=== PATIENT | female | born 1970 | race Caucasian/White ===

== ENCOUNTER 2021-08-23 10:58 | Emergency (ER) | payer MEDICAID, SELFPAY ==
[2021-08-23 11:04] VITALS: BP 139/73; PULSE 71; RESP 16; TEMP 36.8; O2SAT 96
--- NOTE | 2021-08-23 11:20 | ED.GENADUL_ITS ---
Discharge Plan Disposition Patient Disposition: HOME Condition: Improving Discharge Details Clinical Impression: Chronic pain of left ankle, Arthritis of ankle, left Primary Care Provider: None,None ED Provider: Julián Gregorio Home Meds and New Rx's Prescriptions: New diclofenac potassium 50 mg tablet 50 mg PO BID 30 Days Qty: 60 0RF oxycodone [Roxicodone] 5 mg tablet 5 mg PO BID PRN (Reason: pain) Qty: 5 0RF Continued atenolol 25 mg Tablet 25 mg PO DAILY hydrochlorothiazide 25 mg Tablet 25 mg PO DAILY lisinopril 40 mg Tablet 40 mg PO DAILY Discharge Instructions Instructions: Chronic Pain (ED), Arthritis (ED) Additional Instructions: Wear walking boot as needed for comfort 3 to 10 days time. Remove at bedtime and may remove for bathing. Elevate the leg and apply ice 20 minutes at a time to reduce pain and swelling Oxycodone if needed for severe or breakthrough pain. Please restart your diclofenac and follow-up with primary care as you have planned. Return to the ER for any acute concerns Medical Decision Making This is a 51-year-old female with chronic left ankle pain due to previous fracture with ORIF. She has been maintained on diclofenac orally for years, recently moved from [place] and has lost her primary care and prescription. She has just restarted primary care but not yet all of her medications. She complains of acute on chronic left ankle pain without fever or rash, denies new injury. Her exam is consistent with the above. She declined screening radiographs. I do feel she had to be started back on her diclofenac, she has plans to establish outpatient baseline laboratories. We will trial walking boot. Distally she was consented for total 5 narcotic analgesics for her acute pain. She is not known to have any chronic renal dysfunction. She is stable for outpatient plan of care HPI General Mode of arrival: ambulatory . Date/Time Provider Initiated Documentation: 08/23/21 11:02 . Limitations to Documentation: no limitations . Information obtained by: patient . History of Present Illness 51 year old F presents to the emergency department with the chief complaint of Acute exacerbation of chronic left ankle pain, described as moderate, Quality is described as dull and constant, and is localized to the left and lower extremity. Patient reports no radiation. Patient started experiencing this year(s) and it has been constant. Rest improves symptom(s), Movement worsens symptoms . Patient notes denies fever/chills and rash. Patient did receive the following treatments prior to arrival, none Related Data Home Medications Medication Instructions Recorded Confirmed atenolol 25 mg tablet 25 mg PO DAILY 08/23/21 08/23/21 diclofenac potassium 50 mg tablet 50 mg PO BID 30 days #60 tabs 08/23/21 hydrochlorothiazide 25 mg tablet 25 mg PO DAILY 08/23/21 08/23/21 lisinopril 40 mg tablet 40 mg PO DAILY 08/23/21 08/23/21 oxycodone 5 mg tablet (Roxicodone) 5 mg PO BID PRN pain #5 tabs 08/23/21 Previous Rx's Medication Instructions Recorded diclofenac potassium 50 mg tablet 50 mg PO BID 30 days #60 tabs 08/23/21 oxycodone 5 mg tablet (Roxicodone) 5 mg PO BID PRN pain #5 tabs 08/23/21 Allergies Allergy/AdvReac Type Severity Reaction Status Date / Time No Known Allergies Allergy Unverified 08/23/21 11:09 General Stated Complaint: Orthopedic DONG: 4 Review of Systems Narrative: 6 systems reviewed and otherwise negative. No new injury, no fever or rash PFSH All Active Problems (Updated 08/23/21 @ 11:26 by Julián Gregorio MD) Chronic pain of left ankle (Acute) Arthritis of ankle, left (Acute) Social History Smoking/Tobacco Use Status: Never Smoking risk assessment performed?: Yes Alcohol Intake: never Substance use type: does not use Do you feel safe at home: Yes Do you feel safe in your relationship?: Yes Exam Narrative Exam Narrative: GEN: awake, alert, oriented 3. Pleasant, well groomed, interactive. HEAD: Normocephalic, atraumatic ENT: Mucous membranes moist, oropharynx unremarkable, External ear exam unremarkable EYES: PERRL, EOMI NECK: Full ROM, no AYDEN, no menigismus CHEST/RESP: Nontender, clear to auscultation bilateral, no wheeze/rhonchi/rales CARDIOVASCULAR: RRR, no murmur, rub patti. 2+ Rad pulse bilateral ABDOMEN: Soft, nontender, no mass. +Bowel sounds EXT: Full ROM, left ankle with healed surgical scar, mild swelling, mild diffuse tenderness. Neuro: Grossly normal neurologic exam, conversant, interactive. Psych: Speech fluent, thoughts congruent, affect normal Course Vital Signs Vital signs: Vital Signs Temperature 36.8 C 08/23/21 11:04 Pulse 71 08/23/21 11:04 Respiratory Rate 16 08/23/21 11:04 Blood Pressure 139/73 08/23/21 11:04 Pulse Oximetry 96 08/23/21 11:04 Temperature 36.8 C 08/23/21 11:04 Pulse 71 08/23/21 11:04 Respiratory Rate 16 08/23/21 11:04 Respiratory Effort 08/23/21 11:10 Blood Pressure 139/73 08/23/21 11:04 Pulse Oximetry 96 08/23/21 11:04 Pain Level 9 08/23/21 11:04
[2021-08-23] MEDS: Ketorolac 30 MG/ML VIAL IM (11:40)
== END 2021-08-23 11:52 | disposition home or self-care (01) ==
PROVIDERS: Emergency Provider Emergency Medicine
DX: M25.572 Pain in left ankle and joints of left foot (principal); G89.29 Other chronic pain
CPT/HCPCS: 99284; 99283; J1885

== ENCOUNTER 2021-08-30 17:52 | Outpatient (REF) | payer MEDICAID, SELFPAY ==
[2021-08-30 16:11] LABS: Abs Immature Grans 0.04 10^3/uL (0.0-0.06); Absolute Basophil Count 0.04 10^3/uL (0.0-0.2); Absolute Eosinophil Count 0.41 10^3/uL (0.0-0.7); Absolute Lymphocyte Count 1.97 10^3/uL (1.2-3.4); Absolute Monocyte Count 0.41 10^3/uL (0.1-0.8); Absolute Neutrophil Count 6.95 10^3/uL (1.2-6.7); Basophils % 0.4; Eosinophils % 4.2; HCT 41.9 % (36.0-46.0); HGB 12.8 g/dL (11.2-15.7); Immature Grans % 0.4; Lymphocytes % 20.1; MCH 27.1 pg (27.0-33.0); MCHC 30.5 % (32.0-36.0); MCV 89 fL (80-95); MPV 11.4 fL (8.0-11.0); Monocytes % 4.2; Neutrophils % 70.7; Platelet Count 403 10^3/uL (130-400); RBC 4.72 10^6/uL (3.93-5.22); RDW 12.9 % (11.7-14.6); RDW-SD 42.2 fL; WBC 9.82 10^3/uL (4.4-10.8)
[2021-08-30 17:44] LABS: ALT 45 U/L (14-59); AST 45 U/L (15-37); Albumin 3.2 g/dL (3.4-5.0); Alkaline Phosphatase 71 U/L (46-116); Anion Gap 7.2 mmol/L (3-11); BUN 25 mg/dL (7-18); Bilirubin, Total 0.5 mg/dL (0.2-1.0); CO2 28.8 mmol/L (21.0-32.0); CREATININE 0.7 mg/dL (0.55-1.02); Calcium 9.2 mg/dL (8.5-10.1); Calculated LDL 76 mg/dL (<100); Chloride 104 mmol/L (98-107); Cholesterol 139 mg/dL (<200); Glucose 96 mg/dL (74-106); HDL Cholesterol 52 mg/dL (40-60); Potassium 4.1 mmol/L (3.5-5.1); Sodium 140 mmol/L (136-145); TSH (W/Ref FT4) 0.99 uIU/mL (0.36-3.74); Total Protein 7.9 g/dL (6.4-8.2); Triglyceride 59 mg/dL (<150)
[2021-08-30 17:58] LABS: Vitamin D 25 Total 22.2 ng/mL (30-100)
== END 2021-08-30 17:53 | disposition home or self-care (01) ==
LOC: NCHCN 17:52
PROVIDERS: Visit Provider Nurse Practitioner Family
DX: I10 Essential (primary) hypertension (principal); F41.8 Other specified anxiety disorders; E55.9 Vitamin D deficiency, unspecified; L40.59 Other psoriatic arthropathy; M25.572 Pain in left ankle and joints of left foot
CPT/HCPCS: 80053; 80061; 82306; 84443; 85025

== ENCOUNTER → 2021-09-26 00:19 | Outpatient (CLI) | payer MEDICAID, SELFPAY ==
--- NOTE | 2021-09-26 10:52 | DI.RAD_ITS ---
Exam(s) XR ANKLE LT COMPLETE EXAM: XR ANKLE LT COMPLETE CLINICAL HISTORY: LT ANKLE JOINT PAIN, M25.572, CHRONIC PAIN, SIGNIFICANT TRAUMA 2003 SURGERY TECHNIQUE: 2D digital imaging was performed. Three views. COMPARISON: No exams were available for comparison FINDINGS: BONES: Hardware is noted in distal tibia and fibula related to fracture fixation. No acute fracture is present. No bony destructive lesion is seen. JOINTS:There is severe narrowing of the tibiotalar and fibulotalar joints, with near obliteration of the joint space and prominent periarticular spurring. He heel spurs are also noted. SOFT TISSUE: Swelling around both malleoli. Soft tissue calcifications. IMPRESSION: Severe degenerative changes of the ankle joint DATA REPOSITORY: RADIATION DOSE DELIVERED:
== END ==
PROVIDERS: Visit Provider Nurse Practitioner Family
DX: M25.572 Pain in left ankle and joints of left foot (principal); G89.29 Other chronic pain; M19.072 Primary osteoarthritis, left ankle and foot; Z87.828 Personal history of other (healed) physical injury and trauma
CPT/HCPCS: 73610

== ENCOUNTER → 2021-11-26 02:41 | Outpatient (CLI) | payer MEDICAID, SELFPAY ==
--- NOTE | 2021-11-26 | DI.US_ITS ---
Exam(s) US ABDOMEN LIMITED EXAM: US ABDOMEN LIMITED CLINICAL HISTORY: ELEVATED LFT'S R79.89, EVALUATE LIVER TECHNIQUE: Ultrasound abdomen performed using standard protocol. COMPARISON: No exams were available for comparison FINDINGS: LIVER: Enlarged at 20 cm in length. Diffusely increased echogenicity consistent with moderate hepati c steatosis.. No focal liver lesions are seen.. GALLBLADDER: Status post cholecystectomy. BILIARY SYSTEM: No intrahepatic or extrahepatic biliary ductal dilation. Right KIDNEY: Normal in size. No evidence of renal calculi. No evidence of hydronephrosis. No renal m ass or cyst identified. PANCREAS: Normal where visualized. ABDOMINAL AORTA AND IVC: Visualized portions normal caliber. ASCITES: None seen. IMPRESSION: Enlarged liver with moderate hepatic steatosis. DATA REPOSITORY:
== END ==
PROVIDERS: Visit Provider Nurse Practitioner Family
DX: K76.0 Fatty (change of) liver, not elsewhere classified (principal); R16.0 Hepatomegaly, not elsewhere classified
CPT/HCPCS: 76705

== ENCOUNTER 2022-02-27 16:35 | Emergency (ER) | payer MEDICAID, SELFPAY ==
[2022-02-27 16:40] VITALS: BP 152/105; PULSE 73; RESP 18; TEMP 36.8; O2SAT 94
[2022-02-27] MEDS: Benzocaine 20% Gel 30 GM JAR MM (17:45)
--- NOTE | 2022-02-27 17:52 | W.ED.GENAD ---
Discharge Plan Disposition Patient Disposition: Home Condition: Stable Discharge Details Clinical Impression: Pain, dental Primary Care Provider: TIMOTHY JUSTIN ED Provider: Herb Reyes Home Meds and New Rx's Prescriptions: No Action tizanidine 2 mg tablet 2 mg PO Q8H PRN (DME) Custom Elena Brace See Rx Instructions .Route .MEDSUPPLY Qty: 1 0RF Rx Instructions: Please fit and fabricate a custom Elena type brace to the left ankle for severe left ankle post-traumatic arthritis. She is unable to utilize [id number] options given her leg shape and fixed plantarflexed positioning. duloxetine 60 mg capsule,delayed release(DR/EC) 120 mg PO DAILY trazodone 50 mg tablet 50 mg PO QHS PRN atenolol 25 mg Tablet 25 mg PO DAILY hydrochlorothiazide 25 mg Tablet 25 mg PO DAILY lisinopril 40 mg Tablet 40 mg PO DAILY Discharge Instructions Instructions: Toothache (ED) Additional Instructions: You may use the provided dental gel 4 times a day. Please not use any more than that. Apply for at least 1 minute at a time and spit out remaining medication. If you develop any significant worsening of symptoms such as facial swelling, difficulty breathing or swallowing, or swelling of your tongue return immediately to the emergency department for reassessment. Otherwise continue follow-up with your dental provider for definitive care of your fractured tooth. Discharge Data Discharge Date/Time-TO BE ENTERED AT DEPARTURE: 02/27/22 17:59 Medical Decision Making Patient presenting to the emergency department for chief complaint of dental pain. Patient denies any facial swelling difficulty breathing or swallowing fever or chills. Patient states this occurred after getting some food stuck in a partially fractured tooth. Patient does state that she has arrange dental follow-up but is coming to the emergency department due to continued pain and discomfort even after removal of the food. Physical exam shows a partially fractured tooth #3 otherwise unremarkable exam. . no signs of deep neck space infection ( Retropharyngeal abscess, Chung's angina, Parapharyngeal space infection, Peritonsillar Abscess ([employer])) or Epiglottitis. Pt non toxic and stable. Benzocaine gel was applied to the area affected and patient reassessed and stated almost full resolution of discomfort. Did give very clear instructions on benzocaine gel use and allowed patient to take the remaining jaw or home with clear instructions to prevent overdose. Patient otherwise to follow-up with dental provider. I do not feel that patient has any signs of infection or need of antibiotics at this time. After discussion of diagnosis and plan of care patient has no further needs, questions, or concerns and states clear understanding to return to the emergency department for any worsening symptoms. This documentation was generated using [employer] dictation system, please disregard any oddities of phrase or misspellings. HPI General Mode of arrival: ambulatory. Date/Time Provider Initiated Documentation: 02/27/22 17:28. Limitations to Documentation: no limitations. Information obtained by: patient. History of Present Illness 51 year old F presents to the emergency department with the chief complaint of Dental pain, described as moderate, with intensity rated at 9. Quality is described as sharp, and is localized to the mouth. Patient started experiencing this day(s) (1) and it has been constant. No relieving factors improve symptom(s), Patient notes no other symptoms.. Patient did receive the following treatments prior to arrival, NSAID Related Data Home Medications Medication Instructions Recorded Confirmed atenolol 25 mg tablet 25 mg PO DAILY 08/23/21 10/09/21 hydrochlorothiazide 25 mg tablet 25 mg PO DAILY 08/23/21 10/09/21 lisinopril 40 mg tablet 40 mg PO DAILY 08/23/21 10/09/21 duloxetine 60 mg capsule,delayed 120 mg PO DAILY 09/05/21 10/09/21 release trazodone 50 mg tablet 50 mg PO QHS PRN 09/05/21 10/09/21 tizanidine 2 mg tablet 2 mg PO Q8H PRN 10/08/21 10/09/21 Custom [email or web address] Brace #1 ea 10/09/21 10/09/21 Previous Rx's Medication Instructions Recorded Custom [email or web address] Brace #1 ea 10/09/21 Allergies Allergy/AdvReac Type Severity Reaction Status Date / Time No Known Allergies Allergy Verified 10/08/21 10:56 General Stated Complaint: DentalOral DONG: 4 Review of Systems Constitutional Constitutional: Denies chills and Denies fever(s) ENT Ears, Nose, Mouth, and Throat: Reports as per HPI, Denies change in voice, Reports dental pain, Denies dysphagia, Denies throat swelling and Denies tongue swelling Cardiovascular Cardiovascular: Denies chest pain and Denies dyspnea Respiratory Respiratory: Denies dyspnea, Denies stridor and Denies wheezing Gastrointestinal Gastrointestinal: Denies abdominal pain, Denies dysphagia, Denies nausea and Denies vomiting Integumentary/Breasts Skin/Breast: Denies rash Allergic/Immunologic Allergic/Immunologic: Denies throat swelling, Denies tongue swelling and Denies wheezing PFSH All Active Problems (Updated 02/27/22 @ 17:53 by Herb Reyes NP) Pain, dental (Acute) Arthritis of ankle, left (Acute) Anxiety and depression (Chronic) Back pain (Acute) Hypertension (Chronic) Psoriatic arthritis (Acute) B12 deficiency (Acute) Elevated LFTs (Acute) Medical History Insomnia RLS (restless legs syndrome) Vitamin D deficiency Social History Smoking/Tobacco Use Status: Never Smoking risk assessment performed?: Yes Alcohol Intake: never Substance use type: does not use Do you feel safe at home: Yes Do you feel safe in your relationship?: Yes Exam Const General: cooperative Orientation: alert, awake and oriented x3 Limitations: mental status not altered [facility] Head: normal to inspection, normocephalic and atraumatic Ears: hearing grossly normal bilaterally, normal mastoids bilaterally and no periauricular adenopathy General nose exam: external nose normal Mouth: oropharynx normal, no drooling, no muffled voice, normal tongue and no trismus Teeth and gingiva: gingiva normal and other (Partially fractured tooth #3 no erythema or edema) Throat: posterior oropharynx normal, tonsils normal and uvula midline Eyes General: appearance normal, both eyes and all related structures Pupils: PERRL Neck Neck: normal visual inspection, full ROM, no lymphadenopathy, no meningeal signs, trachea midline, supple, no anterior neck swelling and no midline deformity Resp Effort & Inspection: normal respiratory effort and able to speak in complete sentences Auscultation: clear to auscultation bilaterally Cardio Rate: regular rate Rhythm: regular rhythm Heart Sounds: S1 normal and S2 normal Course Vital Signs Vital signs: Vital Signs Temperature 36.8 C 02/27/22 16:40 Pulse 73 02/27/22 16:40 Respiratory Rate 18 02/27/22 16:40 Blood Pressure 152/105 H 02/27/22 16:40 Pulse Oximetry 94 02/27/22 16:40 Temperature 36.8 C 02/27/22 16:40 Temperature Source Tympanic 02/27/22 16:40 Pulse 73 02/27/22 16:40 Respiratory Rate 18 02/27/22 16:40 Respiratory Effort 02/27/22 16:45 Blood Pressure 152/105 H 02/27/22 16:40 Blood Pressure Position Supine 02/27/22 16:40 Pulse Oximetry 94 02/27/22 16:40 Oxygen Delivery Method Room Air 02/27/22 16:40 Oxygen Flow Rate 0 02/27/22 16:40 Pain Level 9 02/27/22 16:40
== END 2022-02-27 17:59 | disposition home or self-care (01) ==
PROVIDERS: Emergency Provider Nurse Practitioner Family; PCP Nurse Practitioner Family
DX: K08.89 Other specified disorders of teeth and supporting structures (principal); K03.81 Cracked tooth
CPT/HCPCS: 99282

== ENCOUNTER 2022-03-27 01:44 | Outpatient (CLI) | payer MEDICAID, SELFPAY ==
--- NOTE | 2022-03-27 08:00 | DI.CT_ITS ---
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 TECHNIQUE: Imaging Protocol: Axial computed tomography images with coronal and sagittal reformatted images were created and reviewed. CONTRAST MATERIAL: Intravenous: None COMPARISON: X-rays 09/26/2021 FINDINGS: There has been interval oral removal of the lateral fibular sideplate and the smaller of the 2 side p lates of the distal tibia. No acute fractures. There are advanced osteoarthritic degenerative changes of the ankle-tibiotalar j oint. Joint space narrowing and there are degenerative subarticular cysts on both sides of the joint including tibial plafond and talar dome. No osteochondral defects seen. No evidence of osteomyelit is. Subtalar joint is relatively unremarkable as is the calcaneocuboid articulation. Moderate degen erative changes in the talonavicular joint. Sinus tarsi space is maintained. There is no osseous ta rsal coalition. There is a moderate size inferior calcaneal spur. No significant osseous lesions ev ident. IMPRESSION: Degenerative changes in the tibiotalar joint as described above. Other findings as above. RADIATION DOSE DELIVERED: 316.32mGy.cm Total DLP DATA REPOSITORY: All CT scans at this facility are submitted to the National Radiology Data Registry (NRDR) Dose Index Registry (DIR) with the [employer] (A[employer]). RADIATION OPTIMIZATION: All CT scans at this facility use at least one of these dose optimization te chniques: automated exposure control; mA and/or kV adjustment per patient size (includes targeted exa ms where dose is matched to clinical indication); or iterative reconstruction.
== END 2022-03-27 02:04 ==
LOC: DI 01:45
PROVIDERS: PCP Nurse Practitioner Family; Visit Provider Orthopaedic Surgery
DX: M19.172 Post-traumatic osteoarthritis, left ankle and foot (principal); M77.32 Calcaneal spur, left foot
CPT/HCPCS: 73700

== ENCOUNTER 2022-04-09 12:27 | Outpatient (CLI) | payer MEDICAID, SELFPAY ==
--- NOTE | 2022-04-09 | DI.CT_ITS ---
Exam(s) CT LOWER EXTREMITY LT WO EXAM: CT LOWER EXTREMITY LT WO CLINICAL HISTORY: OSTEOARTHRITIS OF LEFT ANKLE M19.172 PROPHECY PROTOCOL, SURGICAL PLANNING. TECHNIQUE: Imaging Protocol: Axial computed tomography images with coronal and sagittal reformatted images were created and reviewed. COMPARISON: CT CT LOWER EXTREMITY LT WO from 03/27/2022 FINDINGS: The examination was performed for nondiagnostic purposes and pre-surgical planning. There are marked degenerative changes seen at the tibial talar joint. There are postsurgical changes seen in the dis blane tibia and fibula. Calcaneal spurs are seen. Mild fatty atrophy of the lower extremity musculatu re is seen. IMPRESSION: 1. Posttraumatic and degenerative changes seen in the ankle. RADIATION DOSE DELIVERED: 595.24mGy.cm Total DLP 595.24mGy.cm Total DLP DATA REPOSITORY: All CT scans at this facility are submitted to the National Radiology Data Registry (NRDR) Dose Index Registry (DIR) with the [employer] (A[employer]). RADIATION OPTIMIZATION: All CT scans at this facility use at least one of these dose optimization te chniques: automated exposure control; mA and/or kV adjustment per patient size (includes targeted exa ms where dose is matched to clinical indication); or iterative reconstruction.
== END 2022-04-09 12:47 ==
LOC: DI 12:28
PROVIDERS: PCP Nurse Practitioner Family; Visit Provider Orthopaedic Surgery
DX: M25.572 Pain in left ankle and joints of left foot (principal); M19.172 Post-traumatic osteoarthritis, left ankle and foot; M77.32 Calcaneal spur, left foot; M62.572 Muscle wasting and atrophy, not elsewhere classified, left ankle and foot
CPT/HCPCS: 73700

== ENCOUNTER 2022-04-11 02:07 | Outpatient (CLI) | payer MEDICAID, SELFPAY ==
--- NOTE | 2022-04-11 | DI.MAMMO_ITS ---
Exam(s) MAMMO SCREENING EXAM: MAMMO SCREENING CLINICAL HISTORY: SCREENING MAMMO Z12.39 TECHNIQUE: Bilateral full field digital CC and MLO mammographic images were obtained with 3D tomosyn thesis and utilizing computer aided detection (CAD). COMPARISON: Available for comparison. FINDINGS: Masses/Architectural Distortion: None seen. Microcalcifications: No suspicious pleomorphic-type are seen. Skin Thickening/Nipple Retraction: None. IMPRESSION: 1. No significant interval change with no specific features of malignancy noted. 2. Unless there is more urgent need, screening mammography is recommended, as per [employer] guidelines. BI-RADS Category 1 - Negative Breast Density - Category B - Scattered areas of fibroglandular density Breast density category C or D implies that the patient has dense breast tissue. Dense breast tissue is very common and is not abnormal but dense breast tissue can make it harder to find cancer on a ma mmogram. Also, dense breast tissue may increase their breast cancer risk. This information about the result of the mammogram report was provided to the patient to raise their awareness. Use this report when you speak with the patient about their risks for breast cancer, which includes their family hist ory. At that time, you may recommend for more screening tests (Ultrasound or MRI) as they might be us eful based on their risk. A negative radiographic report should not delay biopsy if a dominant or clinically suspicious mass is present. Up to ten percent of cancers are not identified on mammography. A negative report may reinforce clinical impression. Adenosis and dense breasts may obscure an underlying neoplasm. False positive reports average 6 to 10%. Patient will receive a letter notifying them of these results.
== END 2022-04-11 02:27 ==
LOC: DI 02:08
PROVIDERS: PCP Nurse Practitioner Family; Visit Provider Family Medicine
DX: Z12.31 Encounter for screening mammogram for malignant neoplasm of breast (principal)
CPT/HCPCS: 77063; 77067

== ENCOUNTER 2022-10-04 10:04 | Emergency (ER) | payer MEDICAID, SELFPAY ==
[2022-10-04 10:06] VITALS: BP 128/93; PULSE 100; RESP 18; TEMP 36.5; O2SAT 95
--- NOTE | 2022-10-04 10:30 | DI.RAD_ITS ---
Exam(s) XR SHOULDER LT COMPLETE 2+V XR ELBOW LT COMPLETE XR HUMERUS LT EXAM: XR SHOULDER LT COMPLETE 2+V and XR humerus LT and XR elbow LT complete CLINICAL HISTORY: left upper arm pain. TECHNIQUE: 2D digital imaging was performed of the left humerus, elbow and shoulder. Nine images we re obtained. AP, Y, Grashey and AP and lateral views were obtained. COMPARISON: No priors for comparison. FINDINGS: BONES: There is an acute fracture of the greater tuberosity. The fracture appears nondisplaced. No bony destructive lesion is seen. JOINTS: No dislocation present. There are degenerative changes seen at the acromioclavicular joint. The glenohumeral joint and elbow joints are well maintained. No effusion is seen in the elbow joint. SOFT TISSUE: Normal. IMPRESSION: Nondisplaced acute fracture of the greater tuberosity of the proximal humerus. DATA REPOSITORY: RADIATION DOSE DELIVERED:
--- NOTE | 2022-10-04 10:35 | ED.GENADUL_ITS ---
Discharge Plan Disposition Patient Disposition: Home Condition: Good Discharge Details Clinical Impression: Closed left humeral fracture Primary Care Provider: TIMOTHY JUSTIN ED Provider: Meaghan Henderson Home Meds and New Rx's Prescriptions: New oxycodone 5 mg tablet 5 mg PO Q4H PRNQty: 14 0RF Continued tizanidine 2 mg tablet 2 mg PO Q8H PRN duloxetine 60 mg capsule,delayed release(DR/EC) 120 mg PO DAILY trazodone 50 mg tablet 50 mg PO QHS PRN cetirizine 10 mg Tablet 10 mg PO DAILY diclofenac sodium 75 mg Tablet,Delayed Release (Dr/Ec) 75 mg PO BID folic acid 1 mg Tablet 1 mg PO DAILY hydroxyzine HCl 25 mg Tablet 25 mg PO BID PRN cholecalciferol (vitamin D3) [Vitamin D3] 10 mcg (400 unit) Capsule 10 mcg PO DAILY methotrexate 2.5 mg/mL Solution 2.5 mg PO QWEEK atenolol 25 mg Tablet 25 mg PO DAILY hydrochlorothiazide 25 mg Tablet 25 mg PO DAILY lisinopril 40 mg Tablet 40 mg PO DAILY No Action (DME) Custom Elena Brace See Rx Instructions .Route .MEDSUPPLY Qty: 1 0RF Rx Instructions: Please fit and fabricate a custom Elena type brace to the left ankle for severe left ankle post-traumatic arthritis. She is unable to utilize [id number] options given her leg shape and fixed plantarflexed positioning. cephalexin 500 mg Capsule 500 mg PO BID Discharge Instructions Instructions: Proximal Humerus Fracture (ED) Additional Instructions: You will need to followup with orthpedics- they should call to schedule an appointment. You can take tylenol over the counter for pain; follow the directions on the lane ttle. You can also take oxycodone up to every 4 hours as needed for pain. Return to the emergency department for new or worsening symptoms. Referrals: [facility] [Provider Group] (left humerus greater tuberosity fracture) Medical Decision Making 52yo F with hx of osteoarthritis presenting with left arm pain after fall from porch; pulled of elevated (3 steps up) porch by dog as she had the leash wrapped around her left wrist. Landed on her left side, has left arm pain otherwise deneis pain or injury. No head strike, not on AC. Tachycardiac on arrival likely 2/t pain, vital signs otherwise reassuring. Pain at left eblow and shoulder, otherwise no significant traumatic findings on exam. Neurvascular intact LUE. No tenderness at hand, wrist, or forearm including no snuffbox tenderness. Will image proximal LUE. Would not pursue advanced imaging such as CT scan. Given PO tylenol and IM fentanyl for pain (patient on methotraxate/NSAID already, will avoid toradol), PO zofran. Plain films LUE (shoulder, humerus, elbow) ordered and independently reviewed, nondisplaced greater tuberosity fracture ; agree with radiology reads below. CXR independently reviewed, no evident rib fractures, agree with radiology read below. On reassessment patient symptomatically improved with reassuring vital signs. Placed in sling and arranged for outpatient orthopedic followup. Discharged home with short course of oxycodone. Discharge instructions including return precautions were reviewed with patient who verbalized understanding. All questions were answered and they are in full agreement with the plan. Imaging Data Radiologic Study: Imaging: X-Ray (Shoulder, XR, humerus) Radiologist's impression: IMPRESSION: Nondisplaced acute fracture of the greater tuberosity of the proximal humerus.? Radiologic Study #2: Imaging: X-Ray (chest) Radiologist's impression: IMPRESSION: No acute pulmonary findings. HPI General Date/Time Provider Initiated Documentation: 10/04/22 10:29 . Limitations to Documentation: no limitations . HPI Narrative: 52yo F with hx of osteoarthritis presenting with left arm pain after fall from porch. Was on elevated porch (3 steps) with no railing, dog leash wrapped around her left wrist. Dog saw a cat and ran off, she was dragged down and off the porch onto concrete before she was able to untangle the leash. Landed on her left arm. No head strike or loss of consciousness. Not on blood thinners. Reports left upper arm pain, otherwise denies pain. No numbness or tingling to her LUE. She was in her usual state of health before this event. Related Data Home Medications Medication Instructions Recorded Confirmed atenolol 25 mg tablet 25 mg PO DAILY 08/23/21 10/04/22 hydrochlorothiazide 25 mg tablet 25 mg PO DAILY 08/23/21 10/04/22 lisinopril 40 mg tablet 40 mg PO DAILY 08/23/21 10/04/22 duloxetine 60 mg capsule,delayed 120 mg PO DAILY 09/05/21 10/04/22 release trazodone 50 mg tablet 50 mg PO QHS PRN 09/05/21 10/04/22 tizanidine 2 mg tablet 2 mg PO Q8H PRN 10/08/21 10/04/22 [facility] Brace #1 ea 10/09/21 10/09/21 cephalexin 500 mg capsule 500 mg PO BID 10/04/22 10/04/22 cetirizine 10 mg tablet 10 mg PO DAILY 10/04/22 10/04/22 cholecalciferol (vitamin D3) 10 10 mcg PO DAILY 10/04/22 10/04/22 mcg (400 unit) capsule (Vitamin D3) diclofenac sodium 75 mg 75 mg PO BID 10/04/22 10/04/22 tablet,delayed release folic acid 1 mg tablet 1 mg PO DAILY 10/04/22 10/04/22 hydroxyzine HCl 25 mg tablet 25 mg PO BID PRN 10/04/22 10/04/22 methotrexate 2.5 mg/mL oral 2.5 mg PO QWEEK 10/04/22 10/04/22 solution oxycodone 5 mg tablet 5 mg PO Q4H PRN #14 tabs 10/04/22 Previous Rx's Medication Instructions Recorded [facility] Brace #1 ea 10/09/21 oxycodone 5 mg tablet 5 mg PO Q4H PRN #14 tabs 10/04/22 Allergies Allergy/AdvReac Type Severity Reaction Status Date / Time No Known Allergies Allergy Verified 10/04/22 10:16 General Stated Complaint: Orthopedic DONG: 3 Review of Systems Narrative: see HPI PFSH All Active Problems (Updated 10/04/22 @ 11:43 by Meaghan Henderson MD) Closed left humeral fracture (Acute) Arthritis of ankle, left (Acute) Anxiety and depression (Chronic) Back pain (Acute) Hypertension (Chronic) Psoriatic arthritis (Acute) B12 deficiency (Acute) Elevated LFTs (Acute) Medical History Insomnia RLS (restless legs syndrome) Vitamin D deficiency Social History Smoking/Tobacco Use Status: Never Smoking risk assessment performed?: Yes Alcohol Intake: never Substance use type: does not use Housing: apartment Do you feel safe at home: Yes Do you feel safe in your relationship?: Yes Exam Narrative Exam Narrative: GENERAL: Alert. SKIN: Warm and well perfused. No rashes, bruises, discolorations or abrasions. HEAD: Atraumatic, normocephalic without edema, discoloration or evidence of trauma. EYES: PERRL. No scleral icterus or conjunctival injection. No proptosis or enophthalmos. MOUTH: No malocclusion or trismus. Moist mucus membranes without blood. NECK: Trachea midline. No discolorations or edema. CV: Regular rate and rhythm, Normal s1 and s2. No murmurs, rubs, or gallops. PV: Radial pulses 2+ bilaterally and symmetric. 2+ capillary refill. No extremity edema. CHEST: No abrasions or ecchymosis. Chest symmetric with respirations. No chest wall tenderness. Lungs are clear to auscultation bilaterally. ABDOMEN: No ecchymosis or abrasions. Soft, nondistended, nontender. BACK: No abrasions, skin openings, or ecchymosis. Spine without bony tenderness, no step offs. PELVIC: Pelvis stable, nontender to lateral compression MSK: No gross deformities or discolorations or lesions. Pain with movement at left elbow and shoulder, otherwise tolerates full range of motion of extremities. No digit, wrist, or snuffbox tenderness. No clavicular or scapular tenderness. NEURO: Alert and oriented to person, place, and time. GCS 15. Sensation grossly intact. 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 Course Vital Signs Vital signs: Vital Signs Temperature 36.5 C 10/04/22 10:06 Pulse 100 H 10/04/22 10:06 Respiratory Rate 18 10/04/22 10:06 Blood Pressure 128/93 H 10/04/22 10:06 Pulse Oximetry 95 10/04/22 10:06 Temperature 36.5 C 10/04/22 10:06 Pulse 100 H 10/04/22 10:06 Respiratory Rate 18 10/04/22 10:06 Blood Pressure 128/93 H 10/04/22 10:06 Pulse Oximetry 95 10/04/22 10:06 Oxygen Delivery Method Room Air 10/04/22 10:06 Oxygen Flow Rate 0 10/04/22 10:06
--- NOTE | 2022-10-04 11:20 | DI.RAD_ITS ---
Exam(s) XR CHEST 2V PA LATERAL EXAM: XR CHEST 2V PA LATERAL CLINICAL HISTORY: Fall/Trauma TECHNIQUE: 2D digital imaging was performed of the chest. Two images were obtained. PA and lateral views were obtained. COMPARISON: No exams were available for comparison FINDINGS: MEDIASTINUM: Normal. HEART: Normal. PULMONARY VASCULATURE: Normal. LUNGS: Clear. PLEURAL SPACE: No pleural effusion or pneumothorax. BONE:Within normal limits for the patient's age. The patient's known nondisplaced left greater tuber osity fracture is best appreciated on the x-rays of the left shoulder performed the same day. OTHER FINDINGS:Normal. IMPRESSION: No acute pulmonary findings. DATA REPOSITORY: RADIATION DOSE DELIVERED:
[2022-10-04] MEDS: Acetaminophen 500 MG TAB 1000 MG PO (11:35)
[2022-10-04] MEDS: fentaNYL 100 MCG/2 ML VIAL 50 MCG IVP (11:35)
[2022-10-04] MEDS: Ondansetron O.D.T. 4 MG TABEF PO (11:35)
[2022-10-04 12:17] VITALS: BP 123/75; PULSE 77; RESP 18; TEMP 36.5; O2SAT 95
== END 2022-10-04 12:17 | disposition home or self-care (01) ==
PROVIDERS: Emergency Provider Student in an Organized Health Care Education/Training Program; PCP Nurse Practitioner Family
DX: S42.252A Displaced fracture of greater tuberosity of left humerus, initial encounter for closed fracture (principal); W17.89XA Other fall from one level to another, initial encounter
CPT/HCPCS: 96374; 99284; 71046; 73030; 73060; 73080; J3010

== ENCOUNTER 2022-10-21 15:07 | Outpatient (CLI) | payer MEDICAID, SELFPAY ==
--- NOTE | 2022-10-21 14:09 | DI.RAD_ITS ---
Exam(s) XR SHOULDER LT COMPLETE 2+V EXAM: XR SHOULDER LT COMPLETE 2+V CLINICAL HISTORY: F/U FRACTURE. TECHNIQUE: 2D digital imaging was performed. Three views. COMPARISON: CR XR SHOULDER LT COMPLETE 2+V from 10/04/2022 FINDINGS: There has been some interval healing at the greater tuberosity fracture. The alignment appears uncha nged. No new abnormalities are seen. DATA REPOSITORY: RADIATION DOSE DELIVERED:
== END 2022-10-21 15:08 | disposition home or self-care (01) ==
LOC: DIORS 15:08
PROVIDERS: PCP Nurse Practitioner Family; Visit Provider Physician Assistant
DX: S42.254D Nondisplaced fracture of greater tuberosity of right humerus, subsequent encounter for fracture with routine healing (principal); X58.XXXD Exposure to other specified factors, subsequent encounter
CPT/HCPCS: 73030

== ENCOUNTER 2022-10-29 19:43 | Outpatient (REF) | payer MEDICAID, SELFPAY ==
[2022-10-29 16:06] LABS: Abs Immature Grans 0.02 10^3/uL (0.0-0.06); Absolute Basophil Count 0.06 10^3/uL (0.0-0.2); Absolute Eosinophil Count 0.37 10^3/uL (0.0-0.7); Absolute Lymphocyte Count 1.94 10^3/uL (1.2-3.4); Absolute Monocyte Count 0.29 10^3/uL (0.1-0.8); Absolute Neutrophil Count 5.67 10^3/uL (1.2-6.7); Basophils % 0.7; Eosinophils % 4.4; HCT 38.3 % (36.0-46.0); HGB 11.9 g/dL (11.2-15.7); Immature Grans % 0.2; Lymphocytes % 23.2; MCH 26.9 pg (27.0-33.0); MCHC 31.1 % (32.0-36.0); MCV 87 fL (80-95); MPV 10.9 fL (8.0-11.0); Monocytes % 3.5; Platelet Count 396 10^3/uL (130-400); RBC 4.43 10^6/uL (3.93-5.22); RDW 16.7 % (11.7-14.6); RDW-SD 51.6 fL; WBC 8.35 10^3/uL (4.4-10.8)
[2022-10-29 16:42] LABS: ALT 65 U/L (14-59); AST 54 U/L (15-37); Albumin 3.5 g/dL (3.4-5.0); Alkaline Phosphatase 124 U/L (46-116); Anion Gap 6.3 mmol/L (3-11); BUN 31 mg/dL (7-18); Bilirubin, Total 0.5 mg/dL (0.2-1.0); CO2 28.7 mmol/L (21.0-32.0); CREATININE 0.8 mg/dL (0.55-1.02); Calcium 9.2 mg/dL (8.5-10.1); Calculated LDL 113 mg/dL (<100); Chloride 101 mmol/L (98-107); Cholesterol 175 mg/dL (<200); Estimated GFR 89.71 (mL/min/1.73m2); Glucose 97 mg/dL (74-106); HDL Cholesterol 50 mg/dL (40-60); Potassium 4.9 mmol/L (3.5-5.1); Sodium 136 mmol/L (136-145); TSH (W/Ref FT4) 1.23 uIU/mL (0.36-3.74); Total Protein 7.4 g/dL (6.4-8.2); Triglyceride 61 mg/dL (<150); Vitamin B12 301 pg/mL (193-986)
[2022-10-29 17:07] LABS: Iron 46 ug/dL (50-170); Total Iron Binding Capacity 383 ug/dL (250-450); Transferrin Sat 12 % (15-50)
== END 2022-10-29 19:44 | disposition home or self-care (01) ==
LOC: NCHCN 19:43
PROVIDERS: PCP Nurse Practitioner Family; Visit Provider Nurse Practitioner Family
DX: I10 Essential (primary) hypertension (principal); E53.8 Deficiency of other specified B group vitamins; F32.89 Other specified depressive episodes; R53.83 Other fatigue; G89.29 Other chronic pain; G47.00 Insomnia, unspecified; R79.89 Other specified abnormal findings of blood chemistry
CPT/HCPCS: 80053; 80061; 82607; 83540; 83550; 84443; 85025

== ENCOUNTER 2022-11-05 13:14 | Outpatient (CLI) | payer MEDICAID, SELFPAY ==
--- NOTE | 2022-11-05 13:00 | DI.RAD_ITS ---
Exam(s) XR SHOULDER LT COMPLETE 2+V EXAM: XR SHOULDER LT COMPLETE 2+V CLINICAL HISTORY: f/u L proximal humerus fx. TECHNIQUE: 2D digital imaging was performed of the left shoulder. Two images were obtained. AP and Y views were obtained. COMPARISON: CR XR SHOULDER LT COMPLETE 2+V from 10/21/2022 FINDINGS: BONES: There has been no change in alignment of the fracture involving the greater tuberosity. No ne w fracture is seen. No bony destructive lesion is seen. JOINTS: No dislocation present. The glenohumeral and acromioclavicular joints are unremarkable. SOFT TISSUE: Normal. IMPRESSION: Stable proximal humeral fracture. DATA REPOSITORY: RADIATION DOSE DELIVERED:
== END 2022-11-05 13:15 | disposition home or self-care (01) ==
LOC: DIORS 13:15
PROVIDERS: PCP Nurse Practitioner Family; Referring Provider Nurse Practitioner Family; Visit Provider Student in an Organized Health Care Education/Training Program
DX: S42.252D Displaced fracture of greater tuberosity of left humerus, subsequent encounter for fracture with routine healing (principal); X58.XXXD Exposure to other specified factors, subsequent encounter
CPT/HCPCS: 73030

== ENCOUNTER → 2022-11-21 01:42 | Outpatient (CLI) | payer MEDICAID, SELFPAY ==
--- NOTE | 2022-11-21 08:27 | DI.MRI_ITS ---
Exam(s) MR UPPER JOINT LT WO EXAM: MR UPPER JOINT LT WO CLINICAL HISTORY: ? ROTATOR CUFF TEAR,fx greater tuberositylt humerus,s42.252a,m75.102. TECHNIQUE: Multiplanar multisequence MRI was performed. COMPARISON: Plain films 05 November 2022 FINDINGS: Exam somewhat limited by patient body habitus and motion. BONES: Greater tuberosity fracture, better seen on plain films. Focal area of high signal near fract ure site.. JOINTS:The acromioclavicular joint shows mild spurring. The glenohumeral joint is normal. TENDONS: Supraspinatus: Thickening and intermediate signal without focal tear. Infraspinatus: Unremarkable. Subscapularis: Unremarkable. Teres [place]: Unremarkable. Biceps and [place]: Unremarkable. MUSCLES: Unremarkable. GLENOID LABRUM: Unremarkable on this noncontrast examination. SOFT TISSUES: Unremarkable. OTHER: Subacromial and subdeltoid bursae shows minimal fluid. Small amount of fluid in subcoracoid b ursa. . IMPRESSION: Greater tuberosity fracture. Supraspinatus tendinosis without focal tear. DATA REPOSITORY:
== END ==
PROVIDERS: PCP Nurse Practitioner Family; Visit Provider Student in an Organized Health Care Education/Training Program
DX: S42.252A Displaced fracture of greater tuberosity of left humerus, initial encounter for closed fracture (principal)
CPT/HCPCS: 73221

== ENCOUNTER 2022-12-03 10:24 | Outpatient (CLI) | payer MEDICAID, SELFPAY ==
--- NOTE | 2022-12-03 09:45 | DI.RAD_ITS ---
Exam(s) XR SHOULDER LT COMPLETE 2+V EXAM: XR SHOULDER LT COMPLETE 2+V CLINICAL HISTORY: LEFT HUMERUS FX. TECHNIQUE: 2D digital imaging was performed of the left shoulder. Three images were obtained. Y an d [place] views were obtained. COMPARISON: CR XR SHOULDER LT COMPLETE 2+V from 11/05/2022 FINDINGS: BONES: There has been no change in alignment of the fracture involving the greater tuberosity. No ne w fracture is seen. No bony destructive lesion is seen. JOINTS: No dislocation present. The glenohumeral joint is well maintained. Mild degenerative changes are seen at the acromioclavicular joint. SOFT TISSUE: Normal. IMPRESSION: Stable fracture involving the greater tuberosity. DATA REPOSITORY: RADIATION DOSE DELIVERED:
== END 2022-12-03 10:25 | disposition home or self-care (01) ==
LOC: DIORS 10:24
PROVIDERS: PCP Nurse Practitioner Family; Visit Provider Student in an Organized Health Care Education/Training Program
DX: S42.252A Displaced fracture of greater tuberosity of left humerus, initial encounter for closed fracture (principal); X58.XXXA Exposure to other specified factors, initial encounter
CPT/HCPCS: 73030

== ENCOUNTER 2022-12-29 05:33 | Emergency (ER) | payer MEDICAID, SELFPAY ==
[2022-12-29 05:36] VITALS: BP 157/100; PULSE 88; RESP 18; TEMP 36.5; O2SAT 94
[2022-12-29 05:40] VITALS: BP 157/100; PULSE 87; RESP 18; TEMP 36.6; O2SAT 92
--- NOTE | 2022-12-29 05:45 | DI.RAD_ITS ---
Exam(s) XR PORTABLE CHEST AP EXAM: XR PORTABLE CHEST AP CLINICAL HISTORY: eval for pneumonia. TECHNIQUE: 2D digital imaging was performed. COMPARISON: CR XR CHEST 2V PA LATERAL from 10/04/2022 FINDINGS: Single AP portable view. Heart size is upper normal. The mediastinum is not widened. Left lung is clear but there is now linear infiltrate or atelectasis in the right upper lobe. No ple ural effusions. IMPRESSION: Linear opacities in the right upper lobe which are either atelectasis or developing infiltrate. Requ ires follow-up to resolution. DATA REPOSITORY: RADIATION DOSE DELIVERED:
--- NOTE | 2022-12-29 05:47 | W.ED.GENAD ---
Discharge Plan Disposition Patient Disposition: Home Condition: Good Discharge Details Clinical Impression: Asthma exacerbation, Upper respiratory infection Primary Care Provider: TIMOTHY JUSTIN ED Provider: Ismael Do Home Meds and New Rx's Prescriptions: New azithromycin 250 mg tablet 250 mg PO DAILY 4 Days Qty: 4 0RF Rx Instructions: start on day 2 of therapy prednisone 50 mg tablet 50 mg PO DAILY Qty: 5 0RF No Action tizanidine 2 mg tablet 2 mg PO Q8H PRN (DME) Custom Elena Brace See Rx Instructions .Route .MEDSUPPLY Qty: 1 0RF Rx Instructions: Please fit and fabricate a custom Elena type brace to the left ankle for severe left ankle post-traumatic arthritis. She is unable to utilize [id number] options given her leg shape and fixed plantarflexed positioning. trazodone 50 mg tablet 50 mg PO QHS PRN duloxetine 60 mg capsule,delayed release(DR/EC) 90 mg PO DAILY diclofenac sodium 75 mg Tablet,Delayed Release (Dr/Ec) 75 mg PO BID folic acid 1 mg Tablet 1 mg PO DAILY hydroxyzine HCl 25 mg Tablet 25 mg PO BID PRN methotrexate 2.5 mg/mL Solution 2.5 mg PO QWEEK atenolol 25 mg Tablet 25 mg PO DAILY hydrochlorothiazide 25 mg Tablet 25 mg PO DAILY lisinopril 40 mg Tablet 40 mg PO DAILY Discharge Instructions Instructions: Asthma (ED), Upper Respiratory Infection (ED) Additional Instructions: At this time your COVID flu and RSV test is negative. I suspect you do have mild bronchitis/early pneumonia. Please take the antibiotic as directed. Please stop taking your hydroxyzine while on the medication. Please take the inhaler we have given you, 2 puffs every 6 hours for the next 3 to 4 days. If you notice any worsening of your symptoms, or any new symptoms such as vomiting, diarrhea, fever, chills, shortness of breath, chest pain, numbness, weakness, or fainting , please return immediately to the emergency department for reevaluation. Please follow up with your primary care provider as soon as possible for reassessment and reevaluation. As always, it was a pleasure participating in your medical care today. Referrals: TIMOTHY JUSTIN, [facility] [Primary Care Provider] - Discharge Data Discharge Date/Time-TO BE ENTERED AT DEPARTURE: 12/29/22 07:13 Medical Decision Making 52-year-old female with past medical history of psoriatic arthritis, hypertension, who has never personally smoked, but has been to a smoker who smokes in the house for the last 20 years. She presents today for evaluation of cough and fever. Patient states that over the last 2 to 3 days she has had the symptoms, she has also been mildly short of breath. She denies any chest pain or pleuritic chest pain. No history of clots. She states that her sputum has transition to a green productive sputum with her cough over the last 24 hours. Daughter who is also here has similar symptoms. She denies any history of reactive airway disease otherwise. No other complaints at this time. No other modifying factors. Physical exam demonstrates wheeze in the right lower lung field, no crackles or rhonchi. Oxygenation excellent. No other signs of infection or abnormality. Symptoms inconsistent clinically with ACS at this time. Concern for reactive airway disease from secondhand smoke, worsened by likely viral etiology. Will get x-ray to rule out pneumonia. Will check for flu COVID and RSV. Will give 60 of prednisone and 2 DuoNebs. Will monitor closely and reassess. 6:54 AM COVID flu and RSV are negative. Patient feels much better after nebulizers. Chest x-ray shows linear opacities/developing infiltrate. Concern for potential pneumonia. We will start the patient on azithromycin, give a dose here. Give inhaler for home use. Patient otherwise stable and does not show indication for admission. Oxygenation excellent. No evidence of sepsis. Discussed red flags for which to return. I have extensively reviewed the treatment plan and discharge instructions with the patient and their family. I have addressed all patient concerns at this time. The patient and family was made aware of what symptoms to monitor for that would warrant a return to the emergency department. Discussed the plan with the patient and family, they demonstrate verbal understanding and agreement with our assessment and plan at this time. The documentation in this chart was dictated using [email or web address] dictation software. Please excuse any dictation errors. FINDINGS: Single AP portable view. Heart size is upper normal. The mediastinum is not widened. Left lung is clear but there is now linear infiltrate or atelectasis in the right upper lobe. No pleural effusions. IMPRESSION: Linear opacities in the right upper lobe which are either atelectasis or developing infiltrate. Requires follow-up to resolution. HPI General Date/Time Provider Initiated Documentation: 12/29/22 05:34. HPI Narrative: 52-year-old female with past medical history of psoriatic arthritis, hypertension, who has never personally smoked, but has been to a smoker who smokes in the house for the last 20 years. She presents today for evaluation of cough and fever. Patient states that over the last 2 to 3 days she has had the symptoms, she has also been mildly short of breath. She denies any chest pain or pleuritic chest pain. No history of clots. She states that her sputum has transition to a green productive sputum with her cough over the last 24 hours. Daughter who is also here has similar symptoms. She denies any history of reactive airway disease otherwise. No other complaints at this time. No other modifying factors. Related Data Home Medications Medication Instructions Recorded Confirmed atenolol 25 mg tablet 25 mg PO DAILY 08/23/21 12/29/22 hydrochlorothiazide 25 mg tablet 25 mg PO DAILY 08/23/21 12/29/22 lisinopril 40 mg tablet 40 mg PO DAILY 08/23/21 12/29/22 trazodone 50 mg tablet 50 mg PO QHS PRN 09/05/21 12/29/22 tizanidine 2 mg tablet 2 mg PO Q8H PRN 10/08/21 12/29/22 [facility] Brace #1 ea 10/09/21 12/03/22 diclofenac sodium 75 mg 75 mg PO BID 10/04/22 12/29/22 tablet,delayed release folic acid 1 mg tablet 1 mg PO DAILY 10/04/22 12/29/22 hydroxyzine HCl 25 mg tablet 25 mg PO BID PRN 10/04/22 12/29/22 methotrexate 2.5 mg/mL oral 2.5 mg PO QWEEK 10/04/22 12/29/22 solution duloxetine 60 mg capsule,delayed 90 mg PO DAILY 11/05/22 12/29/22 release azithromycin 250 mg tablet 250 mg PO DAILY 4 days #4 tabs 12/29/22 prednisone 50 mg tablet 50 mg PO DAILY #5 tabs 12/29/22 Previous Rx's Medication Instructions Recorded [facility] Brace #1 ea 10/09/21 azithromycin 250 mg tablet 250 mg PO DAILY 4 days #4 tabs 12/29/22 prednisone 50 mg tablet 50 mg PO DAILY #5 tabs 12/29/22 Allergies Allergy/AdvReac Type Severity Reaction Status Date / Time No Known Allergies Allergy Verified 12/29/22 05:50 General Stated Complaint: SOB DONG: 3 Review of Systems All systems reviewed & are unremarkable except as noted in HPI and below PFSH All Active Problems (Updated 12/29/22 @ 06:57 by Ismael Do DO) Upper respiratory infection (Acute) Asthma exacerbation (Acute) Fracture of greater tuberosity of left humerus (Acute 10/04/22) Arthritis of ankle, left (Acute) Anxiety and depression (Chronic) Back pain (Acute) Hypertension (Chronic) Psoriatic arthritis (Acute) B12 deficiency (Acute) Elevated LFTs (Acute) Medical History Vitamin D deficiency Insomnia RLS (restless legs syndrome) Social History Smoking/Tobacco Use Status: Never Smoking risk assessment performed?: Yes Alcohol Intake: never Substance use type: does not use Housing: apartment Do you feel safe at home: Yes Do you feel safe in your relationship?: Yes Exam Narrative Exam Narrative: 1.Const: Well-nourished, Well-developed, appearing stated age 2.Eyes: PERRL, no conjunctival injection, and symmetrical lids. 3.ENT: Atraumatic external nose and ears. Moist MM. Neck: Symmetric, trachea midline, No thyromegaly. 4.CVS: +S1/S2, No murmurs or gallops. Peripheral pulses 2+ and equal in all extremities. Brisk capillary refill in all extremities. 5.RESP: Diminished breath sounds throughout, notable wheeze in the right lungs. No crackles or rhonchi. 6.GI: Soft, Nontender/Nondistended, No hepatosplenomegaly. No guarding or rebound. 7.MSK: Normocephalic/Atraumatic, Extremities w/o deformity or ttp No cyanosis or clubbing, Normal movement of all extremities 8.Skin: Warm, Dry. No rashes or lesions. 9.Neuro: senior site manager II-XII grossly intact. Sensation grossly intact, no focal neurologic deficits. 10.Psych: (AAO) x3. Appropriate mood and affect Course Vital Signs Vital signs: Vital Signs Temperature 36.5 C 12/29/22 05:36 Pulse 88 12/29/22 05:36 Respiratory Rate 18 12/29/22 05:36 Blood Pressure 157/100 H 12/29/22 05:36 Pulse Oximetry 94 12/29/22 05:36 Temperature 36.6 C 12/29/22 05:40 Pulse 87 12/29/22 05:40 Respiratory Rate 18 12/29/22 05:40 Respiratory Effort Normal 12/29/22 05:40 Respiratory Depth Normal 12/29/22 05:40 Respiratory Pattern Normal 12/29/22 05:40 Blood Pressure 157/100 H 12/29/22 05:40 Pulse Oximetry 92 12/29/22 05:40 Pain Level 0 12/29/22 05:40
[2022-12-29 05:55] VITALS: BP 129/89
[2022-12-29] MEDS: predniSONE 20 MG TAB 60 MG PO (06:10)
[2022-12-29] MEDS: Albuterol/Ipratropium 3 ML UPD VIAL 6 ML UPD (06:10)
[2022-12-29] MEDS: Acetaminophen 500 MG TAB 1000 MG PO (06:12)
[2022-12-29 06:29] LABS: COVID-19 PCR Negative (Negative); Influenza A PCR Negative (Negative); Influenza B PCR Negative (Negative); RSV PCR Negative (Negative)
[2022-12-29 06:37] LABS: Source Nasopharynx
--- NOTE | 2022-12-29 07:09 | DI.VRAD_ITS ---
PROCEDURE INFORMATION: Exam: XR Chest Exam date and time: 12/29/2022 6:03 AM Age: 52 years old Clinical indication: Wheezing TECHNIQUE: Imaging protocol: Radiologic exam of the chest. Views: 1 view. COMPARISON: CR XR CHEST 2V PA LATERAL 10/04/2022 11:13 AM FINDINGS: Lungs: Linear opacity right upper lobe. This may be related to pneumonia versus atelectasis Pleural spaces: Unremarkable. No pleural effusion. No pneumothorax. Heart/Mediastinum: Unremarkable. No cardiomegaly. Bones/joints: Unremarkable. IMPRESSION: Linear opacity right upper lobe likely related to pneumonia or atelectasis. Follow-up to resolution is recommended Dictated and Authenticated by: Dedra Narayanan MD. Ordering:DARIEL Guevara MD
[2022-12-29] MEDS: Azithromycin 250 MG TAB 500 MG PO (07:17)
[2022-12-29] MEDS: Albuterol HFA 8 GM 60 PUFF INH IH (07:17)
[2022-12-29] MEDS: Inhaler, Assist Device 1 EACH MC (07:17)
== END 2022-12-29 07:13 | disposition home or self-care (01) ==
PROVIDERS: Emergency Provider Student in an Organized Health Care Education/Training Program; PCP Nurse Practitioner Family
DX: J45.901 Unspecified asthma with (acute) exacerbation (principal); J06.9 Acute upper respiratory infection, unspecified; Z20.822 Contact with and (suspected) exposure to COVID-19; Z77.22 Contact with and (suspected) exposure to environmental tobacco smoke (acute) (chronic)
CPT/HCPCS: 87637; 99283; 71045; J7512; J7620

== ENCOUNTER → 2023-01-02 15:45 | Outpatient (CLI) | payer MEDICAID, SELFPAY ==
--- NOTE | 2023-01-02 | DI.RAD_ITS ---
Exam(s) XR CHEST 2V PA LATERAL EXAM: XR CHEST 2V PA LATERAL CLINICAL HISTORY: PNEUMONIA, SEEN ED 12/29 XRAY CONCERNING FOR DEVELOPING PNEUMONIA TECHNIQUE: 2D digital imaging was performed. COMPARISON: CR XR CHEST 2V PA LATERAL from 10/04/2022 CR,XR XR PORTABLE CHEST AP from 12/29/2022 FINDINGS: Exam is limited by patient body habitus. HEART: Normal size. Aorta: Not dilated. PULMONARY VASCULATURE: Normal. LUNGS: Clear. Previously noted linear density in the right upper lobe is no longer present. PLEURAL SPACE: No pleural effusion or pneumothorax. BONE:Unremarkable for age. IMPRESSION: No acute abnormality. DATA REPOSITORY: RADIATION DOSE DELIVERED:
== END ==
PROVIDERS: PCP Nurse Practitioner Family; Visit Provider Physician Assistant Medical
DX: J18.9 Pneumonia, unspecified organism (principal)
CPT/HCPCS: 71046

== ENCOUNTER 2023-02-04 10:03 | Outpatient (CLI) | payer MEDICAID, SELFPAY ==
--- NOTE | 2023-02-04 09:30 | DI.RAD_ITS ---
Exam(s) XR SHOULDER LT COMPLETE 2+V EXAM: XR SHOULDER LT COMPLETE 2+V CLINICAL HISTORY: left humerus f/u. TECHNIQUE: 2D digital imaging was performed. COMPARISON: CR XR SHOULDER LT COMPLETE 2+V from 11/05/2022 MR MR UPPER JOINT LT WO from 11/21/2022 CR XR SHOULDER LT COMPLETE 2+V from 12/03/2022 FINDINGS: Two views. Again noted is the previously described healing-healed fracture at the level the greater tuberosity. There is a small calcific density in the lower subacromial space intimately associated with the super ior cortex of the humeral head, slightly medial to the greater tuberosity region and measuring approx imately 8 x 2 mm. This may represent soft tissue calcification or ununited fragment. Suspect that i t is probably some remnant fragment. Ipsilateral clavicle appears unremarkable. No osseous lesions evident. IMPRESSION: Healing-healed greater tuberosity fracture as above. Calcific density noted in the lower subacromial space as described above. If clinically indicated this can be further studied with CT or MRI. DATA REPOSITORY: RADIATION DOSE DELIVERED:
== END 2023-02-04 10:04 | disposition home or self-care (01) ==
LOC: DIORS 10:03
PROVIDERS: PCP Nurse Practitioner Family; Visit Provider Student in an Organized Health Care Education/Training Program
DX: S42.252D Displaced fracture of greater tuberosity of left humerus, subsequent encounter for fracture with routine healing (principal); X58.XXXD Exposure to other specified factors, subsequent encounter
CPT/HCPCS: 73030

== ENCOUNTER 2023-05-07 15:48 | Outpatient (REF) | payer MEDICAID, SELFPAY | END 2023-05-07 15:49 | disposition home or self-care (01) | LOC: LBN 15:48 | PROVIDERS: PCP Nurse Practitioner Family; Visit Provider Obstetrics & Gynecology | DX: N89.8 Other specified noninflammatory disorders of vagina (principal) | CPT/HCPCS: 87480; 87510; 87660 ==

== ENCOUNTER 2023-06-25 15:21 | Outpatient (CLI) | payer MEDICAID, SELFPAY ==
--- NOTE | 2023-06-25 10:45 | DI.RAD_ITS ---
Exam(s) XR SHOULDER LT COMPLETE 2+V EXAM: XR SHOULDER LT COMPLETE 2+V CLINICAL HISTORY: F/U FRACTURE. TECHNIQUE: 2D digital imaging was performed. Three views. COMPARISON: CR XR SHOULDER LT COMPLETE 2+V from 12/03/2022 CR XR SHOULDER LT COMPLETE 2+V from 02/04/2023 FINDINGS: BONES: There has been continued healing at the greater tuberosity fracture. No acute fracture is pre sent. No bony destructive lesion is seen. JOINTS: No dislocation present. Glenohumeral joint space is maintained. Mild spurring at the AC sherrill nt. SOFT TISSUE: Normal. IMPRESSION: Continued healing of greater tuberosity fracture. DATA REPOSITORY: RADIATION DOSE DELIVERED:
== END 2023-06-25 15:22 | disposition home or self-care (01) ==
LOC: DIORS 15:21
PROVIDERS: PCP Nurse Practitioner Family; Visit Provider Student in an Organized Health Care Education/Training Program
DX: S42.252D Displaced fracture of greater tuberosity of left humerus, subsequent encounter for fracture with routine healing (principal); X58.XXXD Exposure to other specified factors, subsequent encounter
CPT/HCPCS: 73030

== ENCOUNTER → 2023-09-05 09:40 | Outpatient (CLI) | payer MEDICAID, SELFPAY ==
--- OUTSIDE RECORDS SUMMARY | 2023-09-05 09:41 | XMS_ITS | Continuity of Care Document ---
Author Name Unknown Organization [facility] Ambulatory Clinics Address [address] [place] [address] Encounter [facility] NBR [id number] Date(s): 07/17/23 - 07/17/23 [facility] Ambulatory Clinics [address] [place], [place] [address] Patient Care team information Care Team Related Persons Name: TAMARA THORNTON Address: Home [address] [place], [place] [id number] [facility]
--- NOTE | 2023-09-05 14:51 | DI.MAMMO_ITS ---
Exam(s) MAMMO SCREENING EXAM: MAMMO SCREENING CLINICAL HISTORY: screening Z12.39. TECHNIQUE: Bilateral full field digital CC and MLO mammographic images were obtained with 3D tomosyn thesis and utilizing computer aided detection (CAD). COMPARISON: Prior mammograms were reviewed. FINDINGS: There has been no significant change in the appearance and distribution of the fibroglandular tissue. There are no CAD designations. There are no new spiculated masses nor malignant appearing microcalcification groups. There is no significant architectural distortion nor skin thickening-retraction. IMPRESSION: No radiographic evidence of malignancy. BI-RADS Category 1 - Negative Breast Density - Category B - Scattered areas of fibroglandular density Breast density Category C or D implies that the patient has dense breast tissue. Dense breast tissue can make it harder to find cancer on a mammogram. Dense breast tissue is also associated with an incr eased risk of breast cancer. This information about the result of the mammogram report was provided to the patient to raise their awareness. Use this report when you speak with the patient about their risks for breast cancer, which includes their family history. At that time, you may recommend additional screening tests (Ultrasoun d or MRI) as these tests may add significant information. A negative radiographic report should not delay biopsy if a dominant or clinically suspicious mass is present. Up to ten percent of cancers are not identified on mammography. A negative report may reinforce clinical impression. Adenosis and dense breasts may obscure an underlying neoplasm. False positive reports average 6 to 10%. Patient will receive a letter notifying them of these results.
== END ==
PROVIDERS: PCP Nurse Practitioner Family; Visit Provider Obstetrics & Gynecology
DX: Z12.39 Encounter for other screening for malignant neoplasm of breast (principal)
CPT/HCPCS: 77063; 77067

== ENCOUNTER 2023-12-24 11:08 | Emergency (ER) | payer MEDICAID, SELFPAY ==
[2023-12-24 11:23] VITALS: BP 180/67; PULSE 71; RESP 16; O2SAT 95
[2023-12-24 11:27] VITALS: BP 180/67; PULSE 71; RESP 16; O2SAT 95
[2023-12-24 12:17] LABS: Bilirubin Negative (Negative); Blood Negative (Negative); Clarity Cloudy (Clear); Glucose Negative (Negative); Ketones Negative (Negative); Leukocyte Esterase Moderate (Negative); Nitrite Negative (Negative); Specific Gravity 1.025 (1.005-1.025)
--- NOTE | 2023-12-24 12:17 | ED.GENADUL_ITS ---
Discharge Plan Disposition Patient Disposition: Home Condition: Good Discharge Details Clinical Impression: Acute diverticulitis, Abdominal pain Primary Care Provider: TIMOTHY JUSTIN ED Provider: Jazmyn Rabago Home Meds and New Rx's Prescriptions: New amoxicillin-pot clavulanate 875-125 mg tablet 1 tab PO BID 7 Days Qty: 14 0RF Continued gabapentin 300 mg capsule 300 mg PO QHS escitalopram oxalate 10 mg tablet 10 mg PO DAILY tizanidine 2 mg tablet 2 mg PO Q8H PRN trazodone 50 mg tablet 50 mg PO QHS Arnuity Ellipta 200 mcg/actuation blister with device 1 inh inhalation DAILY hydroxyzine HCl 25 mg tablet 50 mg PO BID PRN albuterol sulfate [Ventolin HFA] 90 mcg/actuation HFA aerosol inhaler 2 puff inhalation Q4H PRN diclofenac sodium 75 mg Tablet,Delayed Release (Dr/Ec) 75 mg PO BID folic acid 1 mg Tablet 1 mg PO DAILY atenolol 25 mg Tablet 25 mg PO DAILY hydrochlorothiazide 25 mg Tablet 25 mg PO DAILY lisinopril 40 mg Tablet 40 mg PO DAILY Discharge Instructions Instructions: Diverticulitis (DC) Additional Instructions: Your imaging is concerning for acute diverticulitis. As we discussed, this is an infection and a small outpouching in your descending colon. This can be treated with antibiotics, I have prescribed you Augmentin which will be available at your pharmacy for pickup. Even if symptoms improve, please take the entire course. Please continue to encourage hydration. You may advance your diet as tolerated but even if you do not feel hungry, please ensure that you are staying well-hydrated. Please avoid red foods as this can be perceived as blood in your stool. Please follow-up with your primary care at the end of the week for reevaluation. If you develop fever/chills, increased pain, inability stay hydrated or other new/worsening symptoms please seek care urgently once again. Stand Alone Forms: Work Release Referrals: TIMOTHY JUSTIN, [facility] [employer] PROFESSOR [Primary Care Provider] - [facility] General Date/Time Provider Initiated Documentation: 12/24/23 11:37 . Limitations to Documentation: no limitations . Information obtained by: patient and RN notes reviewed . History of Present Illness 53 year old F presents to the emergency department with the chief complaint of Left lower quadrant pain, described as moderate, Quality is described as aching, and is localized to the abdomen. Patient reports no radiation. Patient started experiencing this day(s) and it has been constant. No relieving factors improve symptom(s), No exacerbating factors reported . Patient notes no other symptoms.. Patient did receive the following treatments prior to arrival, none Related Data Home Medications ?Medication ?Instructions ?Recorded ?Confirmed atenolol 25 mg tablet 25 mg PO DAILY 08/23/21 12/24/23 hydrochlorothiazide 25 mg tablet 25 mg PO DAILY 08/23/21 12/24/23 lisinopril 40 mg tablet 40 mg PO DAILY 08/23/21 12/24/23 trazodone 50 mg tablet 50 mg PO QHS 09/05/21 12/24/23 tizanidine 2 mg tablet 2 mg PO Q8H PRN 10/08/21 12/24/23 diclofenac sodium 75 mg 75 mg PO BID 10/04/22 12/24/23 tablet,delayed release folic acid 1 mg tablet 1 mg PO DAILY 10/04/22 12/24/23 escitalopram oxalate 10 mg tablet 10 mg PO DAILY 05/07/23 12/24/23 gabapentin 300 mg capsule 300 mg PO QHS 06/25/23 12/24/23 albuterol sulfate 90 mcg/actuation 2 puff inhalation Q4H PRN 07/21/23 12/24/23 aerosol inhaler (Ventolin HFA) fluticasone furoate 200 1 inh inhalation DAILY 07/21/23 12/24/23 mcg/actuation blister powder for inhalation (Arnuity Ellipta) hydroxyzine HCl 25 mg tablet 50 mg PO BID PRN 07/21/23 12/24/23 amoxicillin 875 mg-potassium 1 tab PO BID 7 days #14 tabs 12/24/23 clavulanate 125 mg tablet Previous Rx's ?Medication ?Instructions ?Recorded amoxicillin 875 mg-potassium 1 tab PO BID 7 days #14 tabs 12/24/23 clavulanate 125 mg tablet Allergies Allergy/AdvReac Type Severity Reaction Status Date / Time No Known Allergies Allergy Verified 12/24/23 11:27 General Stated Complaint: Abd Prob DONG: 3 Review of Systems Constitutional Constitutional: Reports as per HPI, Denies chills, Denies fever(s) and Denies headache(s) ENT Ears, Nose, Mouth, and Throat: Denies headache(s) Cardiovascular Cardiovascular: Reports as per HPI, Denies chest pain and Denies dyspnea Respiratory Respiratory: Reports as per HPI, Denies cough and Denies dyspnea Gastrointestinal Gastrointestinal: Reports as per HPI Musculoskeletal Musculoskeletal: Reports as per HPI and Denies back pain Integumentary/Breasts Skin/Breast: Reports as per HPI and Denies rash Neurologic Neurologic: Reports as per HPI and Denies headache(s) Exam Const General: cooperative, healthy appearing, comfortable, no acute distress and well developed Nutritional Appearance: well nourished and overweight Orientation: alert and awake [facility] Head: normal to inspection Mouth: moist mucous membranes Resp Effort & Inspection: normal respiratory effort, able to speak in complete sentences and no respiratory distress Auscultation: clear to auscultation bilaterally, no rales, no rhonchi and no wheezes Cardio Rate: regular rate Rhythm: regular rhythm Heart Sounds: S1 normal and S2 normal GI Inspection: normal to inspection Palpation: soft, no hepatosplenomegaly, not firm, no guarding, no hepatomegaly, not rigid and tender in the LLQ; not at McBurney's point, not suprapubicly, Marshall's sign negative and with no rebound tenderness Back/Spine/Pelvis Back: no CVA tenderness Skin General skin exam: no rashes or lesions noted Trauma: no lacerations or abrasions Neuro General: patient alert and patient awake Cognition: normal cognition Speech: speech normal Gait: normal gait Course Vital Signs Vital signs: Vital Signs Pulse 71 12/24/23 11:23 Respiratory Rate 16 12/24/23 11:23 Blood Pressure 180/67 H 12/24/23 11:23 Pulse Oximetry 95 12/24/23 11:23 Pulse 71 12/24/23 11:27 Respiratory Rate 16 12/24/23 11:27 Respiratory Effort Normal 12/24/23 11:26 Blood Pressure 180/67 H 12/24/23 11:27 Blood Pressure Position Sitting 12/24/23 11:27 Pulse Oximetry 95 12/24/23 11:27 Oxygen Delivery Method Room Air 12/24/23 11:27 Oxygen Flow Rate 0 12/24/23 11:27 Pain Level 7 12/24/23 11:27 Medical Decision Making Patient is a pleasant 53-year-old female presenting today with chief complaint of left lower quadrant pain. Past medical history significant for obesity, chronic lower back pain, hypertension, depression, RLS, status post cholecystectomy and hysterectomy. She reports the pain began about 3 days ago and has been consistent since then. She has not noted any change in her a ppetite, no change with food. Denies any change in bowel or bladder habits. She denies any recent fevers or chills. States that she has had a change in her diet recently as her schedule is changed so is more sporadic with her eating and not as consistent as that she was previously. She is never had a colonoscopy. Did not take any of her medications this morning. On exam, patient appears fatigued but otherwise nontoxic. She is hemodynamically stable. Her blood pressure is elevated but this likely from her not taking her medications this morning and will give her a dose now. She states that she has not had anything to drink. Will give her some IV fluids. Abdominal exam significant for left lower quadrant pain although no peritoneal findings are appreciated. No pain elsewhere about the abdomen. No CVA tenderness. Primarily concern at this time for potential diverticulitis. Will obtain labs and imaging. Patient declines any analgesics at this time.Will obtain labs and imaging. Labs reviewed. No leukocytosis. Stable H&H. CMP without significant abnormality. Urine contaminated. She not having any urinary symptoms at this time. ABDOMEN: Lung Bases: Normal where visualized. Liver: There is fatty infiltration of the liver. The liver measures 20 cm long. No measurable mass. Gallbladder and biliary tract: Status post cholecystectomy. No significant bi liary ductal dilatation is present. Pancreas: There is fatty infiltration of the pancreas. No evidence of a pancreatic mass or peripancreatic fluid collection is seen. Spleen: Normal. Kidneys: Normal size, contour and axis.No radiodense stones or obstructive uropathy. No masses seen. Adrenal glands: No mass is seen. Lymph nodes: Within normal limits. Abdominal Aorta: Abdominal portion non-dilated. PELVIS: Bladder:Symmetric distention, no gross wall thickening. Bowel: There are diverticula seen in the mid sigmoid colon with focal bowel wall thickening and pericolonic inflammation consistent with acute diverticulitis. There is no evidence of bowel obstruction. Appendix is unremarkable. Peritoneal cavity: No ascites, collection or mesenteric inflammatory response. No free air. Reproductive organs: Unremarkable as visualized. Bones: Within normal limits. Soft Tissues: Within normal limits. IMPRESSION: 1. Acute diverticulitis of the sigmoid colon. No abscess or free air. 2. Fatty infiltration of the liver and hepatomegaly. Discussed his findings with the patient. Considered antibiotic versus on the antibiotic management. However, as the pain has continued to increase, I do feel that it is appropriate to treat patient with antibiotics at this time and will treat her with p.o. Augmentin. I discussed this plan with the patient is in agreement. I also encourage close follow-up with primary care. She will call to schedule follow-up appointment. Strict return precautions were discussed. I encouraged Tylenol and ibuprofen as needed for discomfort. We also discussed diet. I advised that she may advance diet as tolerated but to ensure that she is continuing to drink clear fluids in the interim and we did discuss how to advance diet. All of her questions and concerns were addressed and patient is agreement this plan. Work note given at patient request. This documentation was generated using [employer] system, please disregard any oddities of phrase or misspellings. Quality:SDOH Health Related Social Needs: No Data to Display PFSH All Active Problems (Updated 12/24/23 @ 14:54 by FRANCISCO Zafar) Abdominal pain (Acute) Acute diverticulitis (Acute) Bilateral carpal tunnel syndrome (Acute) Encounter for well woman exam (Acute) Vaginal discharge (Acute) Fracture of greater tuberosity of left humerus (Acute 10/04/22) Arthritis of ankle, left (Acute) Anxiety and depression (Chronic) Back pain (Acute) Hypertension (Chronic) Psoriatic arthritis (Acute) B12 deficiency (Acute) Elevated LFTs (Acute) Medical History Body mass index (BMI) of 40.0-44.9 in adult Wheezing Numbness and tingling of hand Fatigue Chronic lower back pain Arthralgia of ankle Osteoarthritis [place] node Abnormal vaginal bleeding Acute urinary tract infection Chronic rhinitis Essential hypertension History of nervous system or sense organ disease Chronic pain Conduct disorder Chronic depression Vitamin B deficiency Fatty liver Arthritis Vitamin D deficiency Insomnia RLS (restless legs syndrome) Surgical History H/O: hysterectomy S/P cholecystectomy Hx of section Social History Smoking/Tobacco Use Status: Never Smoking risk assessment performed?: Yes Alcohol Intake: never Details: INFREQUENT Substance use type: does not use Housing: apartment Do you feel safe at home: Yes Do you feel safe in your relationship?: Yes
[2023-12-24] MEDS: Lactated Ringers 1,000 ML 1000 ML IV (12:18)
[2023-12-24 12:21] LABS: Abs Immature Grans 0.04 10^3/uL (0.0-0.06); Absolute Basophil Count 0.04 10^3/uL (0.0-0.2); Absolute Eosinophil Count 0.26 10^3/uL (0.0-0.7); Absolute Lymphocyte Count 2.18 10^3/uL (1.2-3.4); Absolute Neutrophil Count 7.36 10^3/uL (1.2-6.7); Basophils % 0.4 %; Eosinophils % 2.5 %; HCT 43.3 % (36.0-46.0); HGB 13.6 g/dL (11.2-15.7); Immature Grans % 0.4 %; MCH 27.6 pg (27.0-33.0); MCHC 31.4 % (32.0-36.0); MCV 88 fL (80-95); MPV 10.5 fL (8.0-11.0); Monocytes % 4.8 %; Neutrophils % 70.9 %; Platelet Count 293 10^3/uL (130-400); RBC 4.93 10^6/uL (3.93-5.22); RDW 13.4 % (11.7-14.6); RDW-SD 43.2 fL; WBC 10.38 10^3/uL (4.4-10.8)
[2023-12-24] MEDS: hydroCHLOROthiazide 25 MG TAB PO (12:22)
[2023-12-24 12:26] LABS: Bacteria Many HPF (Negative); C & S Indicated? No/Sq. Contamination; Casts Negative LPF (Negative); Crystals Negative HPF (Negative); Epithelial Cells Many HPF (Negative); Mucus Negative (Negative); RBC 0-2 HPF (0-2)
[2023-12-24] MEDS: Atenolol 25 MG TAB PO (12:28)
[2023-12-24 12:37] LABS: ALT 59 U/L (14-59); AST 38 U/L (15-37); Albumin 3.5 g/dL (3.4-5.0); Alkaline Phosphatase 93 U/L (46-116); Anion Gap 5.1 mmol/L (3-11); BUN 19 mg/dL (7-18); CO2 31.9 mmol/L (21.0-32.0); CREATININE 0.9 mg/dL (0.55-1.02); Calcium 9.8 mg/dL (8.5-10.1); Chloride 104 mmol/L (98-107); Glucose 94 mg/dL (74-106); Magnesium 1.7 mg/dL (1.8-2.4); Potassium 4.2 mmol/L (3.5-5.1); Sodium 141 mmol/L (136-145); Total Protein 8.1 g/dL (6.4-8.2)
[2023-12-24] MEDS: Omnipaque 350 MG/ML 100 ML BTL IJ (13:39)
[2023-12-24] MEDS: Normal Saline - Diluent 50 ML VIAL IJ (13:42)
--- NOTE | 2023-12-24 14:00 | DI.CT_ITS ---
Exam(s) CT ABDOMEN PELVIS WO EXAM: CT ABDOMEN PELVIS WO CLINICAL HISTORY: LLQ pain. TECHNIQUE: Imaging Protocol: Axial computed tomography images with coronal and sagittal reformatted images were created and reviewed. COMPARISON: US US ABDOMEN LIMITED from 11/26/2021 FINDINGS: Noncontrast examination was performed due to lack of IV access. ABDOMEN: Lung Bases: Normal where visualized. Liver: There is fatty infiltration of the liver. The liver measures 20 cm long. No measurable mass. Gallbladder and biliary tract: Status post cholecystectomy. No significant biliary ductal dilatation is present. Pancreas: There is fatty infiltration of the pancreas. No evidence of a pancreatic mass or peripancr eatic fluid collection is seen. Spleen: Normal. Kidneys: Normal size, contour and axis.No radiodense stones or obstructive uropathy. No masses seen. Adrenal glands: No mass is seen. Lymph nodes: Within normal limits. Abdominal Aorta: Abdominal portion non-dilated. PELVIS: Bladder:Symmetric distention, no gross wall thickening. Bowel: There are diverticula seen in the mid sigmoid colon with focal bowel wall thickening and peric olonic inflammation consistent with acute diverticulitis. There is no evidence of bowel obstruction. Appendix is unremarkable. Peritoneal cavity: No ascites, collection or mesenteric inflammatory response. No free air. Reproductive organs: Unremarkable as visualized. Bones: Within normal limits. Soft Tissues: Within normal limits. IMPRESSION: 1. Acute diverticulitis of the sigmoid colon. No abscess or free air. 2. Fatty infiltration of the liver and hepatomegaly. RADIATION DOSE DELIVERED: 931.2mGy.cm Total DLP DATA REPOSITORY: All CT scans at this facility are submitted to the National Radiology Data Registry (NRDR) Dose Index Registry (DIR) with the [employer] (ACR). RADIATION OPTIMIZATION: All CT scans at this facility use at least one of these dose optimization te chniques: automated exposure control; mA and/or kV adjustment per patient size (includes targeted exa ms where dose is matched to clinical indication); or iterative reconstruction.
[2023-12-24 14:48] VITALS: BP 139/70; PULSE 68; O2SAT 96
== END 2023-12-24 15:05 | disposition home or self-care (01) ==
PROVIDERS: Emergency Provider Physician Assistant; PCP Nurse Practitioner Family
DX: K57.32 Diverticulitis of large intestine without perforation or abscess without bleeding; K76.0 Fatty (change of) liver, not elsewhere classified; R10.32 Left lower quadrant pain; I10 Essential (primary) hypertension; Z79.899 Other long term (current) drug therapy
CPT/HCPCS: 36415; 80053; 96360; 99284; 74176; 81003; 81015; 83735; 85025; J3490

== ENCOUNTER 2024-01-14 10:53 | Outpatient (CLI) | payer MEDICAID, SELFPAY ==
--- NOTE | 2024-01-14 12:04 | DI.RAD_ITS ---
Exam(s) XR CHEST 2V PA LATERAL EXAM: XR CHEST 2V PA LATERAL CLINICAL HISTORY: Cough, R05.9 TECHNIQUE: 2D digital imaging was performed of the chest. Two images were obtained. PA and lateral views were obtained. COMPARISON: CR XR CHEST 2V PA LATERAL from 01/02/2023 FINDINGS: MEDIASTINUM: Normal. HEART: Normal. PULMONARY VASCULATURE: Normal. LUNGS: Clear. PLEURAL SPACE: No pleural effusion or pneumothorax. BONE:Within normal limits for the patient's age. There is a right convex curvature of the thoracic s pine. OTHER FINDINGS:Normal. IMPRESSION: No acute pulmonary findings. DATA REPOSITORY: RADIATION DOSE DELIVERED:
== END 2024-01-14 11:13 ==
LOC: DI 10:53
PROVIDERS: PCP Nurse Practitioner Family; Visit Provider Physician Assistant Medical
DX: R05.9 Cough, unspecified (principal)
CPT/HCPCS: 71046

== ENCOUNTER 2024-04-09 14:39 | Emergency (ER) | payer MEDICAID, SELFPAY ==
[2024-04-09 14:41] VITALS: BP 119/80; PULSE 66; RESP 16; TEMP 36.4; O2SAT 95
--- NOTE | 2024-04-09 15:00 | DI.RAD_ITS ---
Exam(s) XR KNEE LT 4V AP,LAT,PINEDA,PAT EXAM: XR KNEE LT 4V AP,LAT,PINEDA,PAT h CLINICAL HISTORY: L knee pain radiating down back of leg. TECHNIQUE: 2D digital imaging was performed. COMPARISON: No prior knee x-rays available for comparison. FINDINGS: Four views There are wires and 2 parallel pins in the patella and there presently no acute patellar fracture mary es. However, the fixation wires in the patella are discontinuous. Of the merchant's view 1 of the w ires is superficially located posteriorly and may be impinging upon the articular cartilage surface o f the retropatellar space. There are moderate-advanced degenerative changes in this compartment. Th ere also appears to be increased density in the suprapatellar-retro quadriceps fat pad. There is als o some calcification in the soft tissues around the inferior aspect of 1 of the patellar pins which e xtends below the inferior cortex of the patella into the soft tissues just anterior to the superior p atellar ligament. There is soft tissue calcification at this level, possibly significant. There is no abnormal density within the anterior intra-articular Hoffa fat pad. There are moderate-advanced degenerative changes in the medial and lateral compartments with joint sp shannon narrowing and intra-articular osteophyte in the medial compartment and marginal osteophytes in lane th medial lateral compartments. There are no osteochondral defects evident. No acute fractures seen . IMPRESSION: Tricompartmental degenerative changes as described above. Patellar hardware as above. DATA REPOSITORY: RADIATION DOSE DELIVERED:
--- NOTE | 2024-04-09 15:00 | DI.US_ITS ---
Exam(s) US LOWER EXTREMITY VENOUS LT EXAM: US LOWER EXTREMITY VENOUS LT CLINICAL HISTORY: back of knee pain radiating down leg, ?angeles cyst TECHNIQUE: Left lower extremity venous ultrasound performed using grayscale, color-flow, and spectra l Doppler analysis. COMPARISON: No exams were available for comparison FINDINGS: The left common femoral, femoral and popliteal veins demonstrate normal compressibility, augmentation , and color Doppler. The posterior tibial and peroneal veins are patent. The saphenofemoral junction is unremarkable. There is no evidence of a Angeles cyst. The soft tissues are unremarkable. IMPRESSION: No evidence of a left lower extremity DVT or Angeles's cyst. DATA REPOSITORY:
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
== END 2024-04-09 16:50 | disposition home or self-care (01) ==
PROVIDERS: Emergency Provider Nurse Practitioner Family; PCP Nurse Practitioner Family
DX: M25.562 Pain in left knee (principal); I10 Essential (primary) hypertension
CPT/HCPCS: 99284; 73564; 93971

== ENCOUNTER 2024-07-14 09:25 | Emergency (ER) | payer MEDICAID, SELFPAY ==
[2024-07-14 09:32] VITALS: BP 134/80; PULSE 74; RESP 15; TEMP 36.7; O2SAT 91
[2024-07-14 09:36] VITALS: BP 134/80; PULSE 74; RESP 15; TEMP 36.7; O2SAT 91
--- NOTE | 2024-07-14 09:49 | ED.GENADUL_ITS ---
Discharge Plan Disposition Patient Disposition: Home Condition: Stable Discharge Details Clinical Impression: Iliotibial band syndrome of left side, Pain of right heel Primary Care Provider: TIMOTHY JUSTIN ED Provider: Ismael Lam Home Meds and New Rx's Prescriptions: Continued gabapentin 300 mg capsule 300 mg PO QHS escitalopram oxalate 10 mg tablet 10 mg PO DAILY tizanidine 2 mg tablet 2 mg PO Q8H PRN trazodone 50 mg tablet 100 mg PO QHS Arnuity Ellipta 200 mcg/actuation blister with device 1 inh inhalation DAILY hydroxyzine HCl 25 mg tablet 50 mg PO BID PRN albuterol sulfate [Ventolin HFA] 90 mcg/actuation HFA aerosol inhaler 2 puff inhalation Q4H PRN diclofenac sodium 75 mg Tablet,Delayed Release (Dr/Ec) 75 mg PO BID folic acid 1 mg Tablet 1 mg PO DAILY atenolol 25 mg Tablet 25 mg PO DAILY hydrochlorothiazide 25 mg Tablet 25 mg PO DAILY lisinopril 40 mg Tablet 40 mg PO DAILY Discharge Instructions Instructions: Heel pain caused by plantar fasciitis, Iliotibial band syndrome Additional Instructions: You were seen for the pain in your heel that is likely from favoring your right foot caused by an element of plantar fasciitis, please continue taking Tylenol and ibuprofen, purchase [id number] Voltaren gel to apply to the areas of pain, your left thigh has iliotibial band syndrome. Please follow-up with a nail salon if you cannot see a heading maker about trimming your toenails, please follow-up with your primary care doctor for nonemergent issues. Referrals: TIMOTHY JUSTIN, [facility] [Primary Care Provider] - Discharge Data Discharge Date/Time-TO BE ENTERED AT DEPARTURE: 07/14/24 10:26 HPI General Date/Time Provider Initiated Documentation: 07/14/24 09:36 . HPI Narrative: 54 year-old female presents to ED today by POV/ambulating with a chief complaint of inability to cut her L toenails due to surgery on her knees and ankles with limited mobility- and R heel pain with favoring her R leg, and a lump in her left lateral thigh with onset insidiously. Quality described as pain in R heel with standing, no radiation to unilateral leg swelling, inability to ambulate, purulent discharge around toenails, fever, red streaking, hip pain. Severity is described as mild. Palliating factors include took Excedrin today at 0530. Provoking factors include nothing specific. Events leading up to the incident/Associated Symptoms: The patient has tried to reach out for her primary care as well as podiatry visits. Patient not anticoagulated. Related Data Home Medications ?Medication ?Instructions ?Recorded ?Confirmed atenolol 25 mg tablet 25 mg PO DAILY 08/23/21 07/14/24 hydrochlorothiazide 25 mg tablet 25 mg PO DAILY 08/23/21 07/14/24 lisinopril 40 mg tablet 40 mg PO DAILY 08/23/21 07/14/24 trazodone 50 mg tablet 100 mg PO QHS 09/05/21 07/14/24 tizanidine 2 mg tablet 2 mg PO Q8H PRN 10/08/21 07/14/24 diclofenac sodium 75 mg 75 mg PO BID 10/04/22 07/14/24 tablet,delayed release folic acid 1 mg tablet 1 mg PO DAILY 10/04/22 07/14/24 escitalopram oxalate 10 mg tablet 10 mg PO DAILY 05/07/23 07/14/24 gabapentin 300 mg capsule 300 mg PO QHS 06/25/23 07/14/24 albuterol sulfate 90 mcg/actuation 2 puff inhalation Q4H PRN 07/21/23 07/14/24 aerosol inhaler (Ventolin HFA) fluticasone furoate 200 1 inh inhalation DAILY 07/21/23 07/14/24 mcg/actuation blister powder for inhalation (Arnuity Ellipta) hydroxyzine HCl 25 mg tablet 50 mg PO BID PRN 07/21/23 07/14/24 Allergies Allergy/AdvReac Type Severity Reaction Status Date / Time No Known Allergies Allergy Verified 07/14/24 09:37 General Stated Complaint: GenMedical DONG: 4 Review of Systems All systems reviewed & are unremarkable except as noted in HPI and below Exam Narrative Exam Narrative: GENERAL APPEARANCE: Well-nourished, non-toxic, awake and alert, atraumatic, no acute distress. SKIN: Warm, pink, dry, intact, without rashes/lesions/ulcerations. HEAD: Normocephalic, atraumatic, normal hair distribution for gender/age. EYES: Normal conjunctiva, no exudates on lids/lashes. ENT: Nares patent, no circumoral cyanosis, no facial swelling NECK: Supple, trachea midline, painless cervical ROM. LUNGS/CHEST: Non-labored respirations, normal A/P diameter, symmetrical expansion, no chest wall deformity HEART (CV/PV): No peripheral edema, no JVD. ABDOMEN: Soft, non-distended, no guarding. MSK: Normal ROM, no swelling/deformity to bilateral UEs or LEs, moving all extremities without weakness, no cyanosis, spine midline without tenderness, normal curvature, L toenails long- no paronychia, L IT band has muscle knot palpable, R heel tender without swelling/redness/skin changes NEURO: Mental Status AAOx4 - alert to person, place, time, events No facial droop, no forehead involvement. Motor: No focal weakness - strength 5/5 in bilateral UEs and LEs, proximal and distal, symmetric. Sensory: sensation intact to light touch globally. Gait normal: patient ambulated without ataxia into ED room. PSYCH: euthymic, cooperative, pleasant, appropriate speech Course Vital Signs Vital signs: Vital Signs Temperature 36.7 C 07/14/24 09:32 Pulse 74 07/14/24 09:32 Respiratory Rate 15 07/14/24 09:32 Blood Pressure 134/80 07/14/24 09:32 Pulse Oximetry 91 L 07/14/24 09:32 Temperature 36.7 C 07/14/24 09:36 Temperature Source Oral 07/14/24 09:36 Pulse 74 07/14/24 09:36 Respiratory Rate 15 07/14/24 09:36 Blood Pressure 134/80 07/14/24 09:36 Blood Pressure Position Sitting 07/14/24 09:36 Pulse Oximetry 91 L 07/14/24 09:36 Oxygen Delivery Method Room Air 07/14/24 09:36 Oxygen Flow Rate 0 07/14/24 09:36 Pain Level 6 07/14/24 09:36 Medical Decision Making This dictation utilizes [id number] dictation software and may contain unedited grammatical errors. 54 year-old female presents to ED today by POV/ambulating with a chief complaint of inability to cut her L toenails due to surgery on her knees and ankles with limited mobility- and R heel pain with favoring her R leg, and a lump in her left lateral thigh with onset insidiously. Quality described as pain in R heel with standing, no radiation to unilateral leg swelling, inability to ambulate, purulent discharge around toenails, fever, red streaking, hip pain. Severity is described as mild. Palliating factors include took Excedrin today at 0530. Provoking factors include nothing specific. Events leading up to the incident/Associated Symptoms: The patient has tried to reach out for her primary care as well as podiatry visits. Patients' medical history: History of left ankle surgery, chronic pain disorder, hypertension, osteoarthritis, psoriatic arthritis. Family and social history: Noncontributory. Pertinent exam findings / vital signs include toenails of left foot long without paronychia, muscle knot in left iliotibial band, mild tenderness in calcaneus without redness, swelling, lesion, wound, no unilateral leg swelling. Differential / pathologies of concern include arthritis/plantar fasciitis, IT band syndrome, problem with ability to maintain toenail hygiene. Diagnostic studies of: - None. Interventions of: - None patient will follow-up with PCP and podiatry. ED Course/Assessment/Plan: 54-year-old female presents to the ED with multiple complaints relating to a complication from ankle surgery that is healed well, inability to bend over and trim her left foot toenails, has not been able to see podiatry, has not tried a nail salon for simple toe nail maintenance hygiene-which I recommend she do. She has a soft tissue not in her left IT band, has been favoring her right leg often has pain in the heel likely element of plantar fasciitis, I counseled her that these are all primary care related issues and follow-up, strict return criteria for any signs of neurovascular compromise, strict return for acute worsening or any other emergent concerns. Findings not consistent with clot pathology, neurovascular compromise, trauma, infection or paronychia. Disposition of pain of right heel, iliotibial band syndrome of left side. Patient verbalized understanding of the plan and return to ED criteria and engaged in shared decision making. Medical Records Medical records reviewed: Yes I reviewed the patient's medical records. Quality:SDOH Health Related Social Needs: No Data to Display PFSH All Active Problems (Updated 07/14/24 @ 10:00 by FRANCISCO Díaz) Pain of right heel (Acute) Iliotibial band syndrome of left side (Acute) Bilateral carpal tunnel syndrome (Acute) Encounter for well woman exam (Acute) Vaginal discharge (Acute) Fracture of greater tuberosity of left humerus (Acute 10/04/22) Arthritis of ankle, left (Acute) Anxiety and depression (Chronic) Back pain (Acute) Hypertension (Chronic) Psoriatic arthritis (Acute) B12 deficiency (Acute) Elevated LFTs (Acute) Medical History Body mass index (BMI) of 40.0-44.9 in adult Wheezing Numbness and tingling of hand Fatigue Chronic lower back pain Arthralgia of ankle Osteoarthritis [place] node Abnormal vaginal bleeding Acute urinary tract infection Chronic rhinitis Essential hypertension History of nervous system or sense organ disease Chronic pain Conduct disorder Chronic depression Vitamin B deficiency Fatty liver Arthritis Vitamin D deficiency Insomnia RLS (restless legs syndrome) Surgical History H/O: hysterectomy S/P cholecystectomy Hx of section Social History Smoking/Tobacco Use Status: Never Smoking risk assessment performed?: Yes Alcohol Intake: never Details: INFREQUENT Substance use type: does not use Housing: apartment Do you feel safe at home: Yes Do you feel safe in your relationship?: Yes
[2024-07-14 10:12] VITALS: BP 115/69; PULSE 68; RESP 16; O2SAT 94
== END 2024-07-14 10:26 | disposition home or self-care (01) ==
LOC: ER 10:03
PROVIDERS: Emergency Provider Physician Assistant; PCP Nurse Practitioner Family
DX: M76.32 Iliotibial band syndrome, left leg (principal); M79.671 Pain in right foot
CPT/HCPCS: 99283 ×2

== ENCOUNTER 2024-10-06 15:55 | Outpatient (REF) | payer MEDICAID, SELFPAY ==
[2024-10-06 15:37] LABS: HCT 41.2 % (36.0-46.0); HGB 13.0 g/dL (11.2-15.7); MCH 28.0 pg (27.0-33.0); MCHC 31.6 % (32.0-36.0); MCV 89 fL (80-95); MPV 11.0 fL (8.0-11.0); Platelet Count 280 10^3/uL (130-400); RBC 4.65 10^6/uL (3.93-5.22); RDW 13.7 % (11.7-14.6); RDW-SD 44.3 fL; WBC 7.90 10^3/uL (4.4-10.8)
[2024-10-06 16:07] LABS: Hemoglobin A1C 5.8 % (<5.7)
[2024-10-06 16:16] LABS: ALT 59 U/L (14-59); AST 45 U/L (15-37); Albumin 3.3 g/dL (3.4-5.0); Alkaline Phosphatase 85 U/L (46-116); Anion Gap 5.0 mmol/L (3-11); BUN 25 mg/dL (7-18); Bilirubin, Total 0.4 mg/dL (0.2-1.0); CO2 29.0 mmol/L (21.0-32.0); Calcium 9.0 mg/dL (8.5-10.1); Chloride 106 mmol/L (98-107); Estimated GFR 104.00 (mL/min/1.73m2); Glucose 80 mg/dL (74-106); Potassium 4.7 mmol/L (3.5-5.1); Sodium 140 mmol/L (136-145); TSH (W/Ref FT4) 1.25 uIU/mL (0.36-3.74); Total Protein 7.5 g/dL (6.4-8.2)
== END 2024-10-06 15:56 | disposition home or self-care (01) ==
LOC: NCHCN 15:55
PROVIDERS: PCP Nurse Practitioner Family; Visit Provider Nurse Practitioner Family
DX: I10 Essential (primary) hypertension (principal); R53.83 Other fatigue; E66.01 Morbid (severe) obesity due to excess calories
CPT/HCPCS: 80053; 85027; 83036; 84443

== ENCOUNTER 2024-12-01 03:28 | Outpatient (CLI) | payer MEDICAID, SELFPAY ==
--- NOTE | 2024-12-01 08:00 | DI.CT_ITS ---
Exam(s) CT LOWER EXTREMITY LT WO EXAM: CT LOWER EXTREMITY LT WO CLINICAL HISTORY: METATARSALGIA LEFT FOOT M770.42 EVAL BONY OVERGROWTH TIBIA LIMITING. TECHNIQUE: Imaging Protocol: Axial computed tomography images with coronal and sagittal reformatted images were created and reviewed. COMPARISON: CT CT LOWER EXTREMITY LT WO from 04/09/2022 DX XR ANKLE MIN 3 VIEWS LEFT (STANDARD) from 07/28/2024 FINDINGS: There is artifact from the patient's tibial talar arthroplasty and sideplate and screws in the distal tibia. Bones: There are old healed distal tibial and fibular fractures. There is no acute fracture or dislocation. There is a plantar calcaneal spur. There is an enthesophyte at the posterior calcaneus. There are hammertoe deformities of the 2nd through 5th toes. The patient has a tibial talar arthroplasty. There is mild lucency seen around the tibial component of the arthroplasty. It appears unchanged compared to the x-ray dated 07/28/2024. There is mild bony growth around the prosthesis laterally and posteriorly. There is a well corticated osseous density anterior to the talar prosthetic component. (Series 13, image 61). Degenerative changes are seen in the midfoot. Portions of old screws are seen anteriorly in the distal tibia. No lytic or sclerotic lesions are identified. Soft Tissues: There is edema seen in the soft tissues of the lower extremity. No focal fluid collection is seen. There is marked fatty atrophy of the muscles in the anterior compartment of the lower leg and dorsum of the foot. IMPRESSION: 1. Left tibial talar arthroplasty as described above. 2. Marked fatty atrophy in the muscles along the dorsum of the foot and in the anterior compartment of the lower leg. 3. Old healed distal tibial and fibular fractures with internal hardware. RADIATION DOSE DELIVERED: 237.49mGy.cm Total DLP 237.49mGy.cm Total DLP DATA REPOSITORY: All CT scans at this facility are submitted to the National Radiology Data Registry (NRDR) Dose Index Registry (DIR) with the [employer] ([employer]). RADIATION OPTIMIZATION: All CT scans at this facility use at least one of these dose optimization techniques: automated exposure control; mA and/or kV adjustment per patient size (includes targeted exams where dose is matched to clinical indication); or iterative reconstruction.
== END 2024-12-01 03:48 ==
LOC: DI 03:28
PROVIDERS: PCP Nurse Practitioner Family; Visit Provider Physician Assistant
DX: M77.42 Metatarsalgia, left foot (principal); Z98.890 Other specified postprocedural states
CPT/HCPCS: 73700